=== PATIENT | female | born 1960 | race Caucasian/White ===

== ENCOUNTER 2017-06-07 14:39 | Inpatient (IN) | payer OTHER ==
[~2017-06-07] VITALS: Ht 162.6 cm; Wt 88.9 kg
--- OUTSIDE RECORDS SUMMARY | ~2017-06-07 | XMS | Clinical Summary ---
Demographics + + + | Address | [address] | | | [place] [address] | + + + | Home Phone | | + + + | Preferred Language | Unknown | + + + | Marital Status | Single | + + + | Samaritan Affiliation | None | + + + [...] Team Providers + +------+ + | Care Foam Gun Operator Name | Role | Phone | + [...] | + +--------+ +--------+ + + | [facility] | PROVID | [id number] | Indemn | [phone] | [address] | | PLAN | [place] | | [address] | [phone] | [place], [place] | | | [place] | | | | [phone] | | | [place] | | | [...] | | al/Fam | | 1959 | [phone] | [place] | | | eros | | | [address]: | [place] [address] | | | | | | | | | | | | | [phone] | | | | | | | [phone] | | + +--------+ +--------+ + + Advance Directives Patient has advance directives. For more information, please contact:[employer] [place] [address]"
[2017-06-07] MEDS ORDERED: NORCO 5-325 TA1 EACH PO (14:52)
[2017-06-07] MEDS ORDERED: CYCLOBENZAPRINE5 MG PO (14:52)
[2017-06-07] MEDS ORDERED: CYMBALTA30 MG PO (14:53)
[2017-06-07] MEDS ORDERED: NEURONTIN300 MG PO (14:53)
--- OUTSIDE RECORDS SUMMARY | 2017-06-07 15:35 | XMS | Clinical Summary ---
Demographics + + + | Address | [address] | | | [place] [address] | + + + | Home Phone | | + + + | Preferred Language | Unknown | + + + | Marital Status | Single | + + + | Confucianist Affiliation | None | + + + | Race | Other Race | + + + | Ethnic Group | or | + + + Author + + + | Author | [facility] | + + + | Organization | [facility] | + + + | Address | Unknown | + + + | Phone | Unavailable | + + + Support + + +---------+ + | Name | Relationship | Address | Phone | + + +---------+ + | MYRNA VILLANUEVA | [place] | Unknown | | + + +---------+ + Care Team Providers + +------+ + | Care Plater Apprentice Name | Role | Phone | + +------+ + | Cody Delacruz DO | PP | | + +------+ + Allergies + + + +--------+ + | Active Allergy | Reactions | Severity | Noted | Comments | | | | | Date | | + + + +--------+ + | Codeine | Rash | | | | + + + +--------+ + Current Medications Not on file Active Problems + + + | Problem | Noted Date | + + + | Morbid obesity (HCC) | 01/17/2007 | + + + | Unspecified essential hypertension | 01/17/2007 | + + + | Unspecified sleep apnea | 01/17/2007 | + + + | Unspecified constipation | 01/17/2007 | + + + | Arthropathy, unspecified, site unspecified | 01/17/2007 | + + + | Backache, unspecified | 01/17/2007 | + + + | Other disorders of lipoid metabolism | 01/17/2007 | + + + | Migraine, unspecified, without mention of intractable migraine | 01/17/2007 | | without mention of status migrainosus | | + + + | Depressive disorder, not elsewhere classified | 01/17/2007 | + + + | Other malaise and fatigue | 01/17/2007 | + + + | Signs and symptoms involving emotional state | 01/17/2007 | + + + | Calculus of kidney | 01/17/2007 | + + + Social History + +-------+ +--------+------+ | Tobacco Use | Types | Packs/Day | Years | Date | | | | | Used | | + +-------+ +--------+------+ | Never Assessed | | | | | + +-------+ +--------+------+ + + + | Sex Assigned at | Date Recorded | | | | + + + | Not on file | | + + + Plan of Treatment + + + + + | Health Maintenance | Due Date | Last Done | Comments | + + + + + | Hep C Ab Screening | | | | | | 9 | | | + + + + + | HIV Screening | | | | | | 4 | | | + + + + + | Tetanus | | | | | | 8 | | | + + + + + | Cervical Cancer | | | | | Screening | 0 | | | + + + + + | Breast Cancer | | | | | Screening | 9 | | | + + + + + | Diabetes Mellitus | | | | | Screening | 9 | | | + + + + + | Colon Cancer | | | | | Screening | 9 | | | + + + + + | IMM Influenza (#1) | | | | | | 7 | | | + + + + + Results Not on filefrom Last 3 Months Insurance + +--------+ +--------+ + + | Payer | Benefi | Subscriber | Type | Phone | Address | | | t Plan | ID | | | | | | / | | | | | | | Group | | | | | + +--------+ +--------+ + + | [facility] | PROVID | [id number] | Indemn | [phone] [address] | | PLAN | [place] | | ity | [phone] | [place], [place] | | | [place] | | | | [phone] | | | [place] | | | | | | | [place] | | | | | + +--------+ +--------+ + + + +--------+ +--------+ + + | Guarantor Name | Accoun | Relation to | Date | Phone | Billing Address | | | t Type | Patient | of | | | | | | | | | | + +--------+ +--------+ + + | SADAF DOYLE | Person | Self [birth year] | Work: | [address] | | | al/Fam | | 1959 | [phone] | [place] | | | eros | | | [phone]: | [place] [address] | | | | | | | | | | | | | [phone] | | | | | | | [phone] | | + +--------+ +--------+ + + Advance Directives Patient has advance directives. For more information, please contact:[employer] [place] [address]"
--- OUTSIDE RECORDS SUMMARY | 2017-06-07 15:35 | XMS | Clinical Summary ---
Demographics + + + | Address | [address] | | | [place] [address] | + + + | Home Phone | | + + + | Preferred Language | Unknown | + + + | Marital Status | Single | + + + | Jain Affiliation | None | + + + [...] Team Providers + +------+ + | Care Hvac Refrigeration Technician Name | Role | Phone | + [...] | + +--------+ +--------+ + + | [employer] | PROVID | [id number] | Indemn | [phone] | [address] | | PLAN | [place] | | it[address] | [phone] | [place], [place] | | | [place] | | | | [phone] | | | [place] | | | [...] | | al/Fam | | 1959 | [phone] | [place] | | | er[address] | | | [address]: | [place] [address] | | | | | | | | | | | | | [phone] | | | | | | | [phone] | | + +--------+ +--------+ + + Advance Directives Patient has advance directives. For more information, please contact:[phone] [place] [address]"
--- NOTE | 2017-06-07 19:05 | NUR ---
PATIENT TO FLOOR FROM ED VIA STRETCHER. PATIENT REPORTED RIGHT QUADRANT PAIN, CHARACTERIZED CRAMPING, SPAMS. ADMISSION ASSESSMENT DONE. ABD TENDER ON THE RIGHT QUADRANT TO PALPATION. BOWEL TONE ACTIVE ON THE LUQ AND HYPOACTIVE IN LLQ AND RUQ/RLQ. PATIENT REPORTED MILD NAUSEA WITH CRAMPING. ZOFRAN WAS ADMINISTERED. SKIN INTACT. PERIPHERAL PULSE PALPABLE. HEART TONE REGULAR BUT TACHY AT TIME. PATIENT IS ON 2L O2 AND SAT @ 95-97%. IV SITE PATENT AND FLUID AND ABX INFUSING. PATIENT ORIENTED TO ROOM. CALL LIGHT IN REACH. FAMILY AT BEDSIDE.
--- NOTE | 2017-06-07 19:10 | NUR ---
DR DUNBAR IN ROOM TO EVALUATE PATIENT. PLAN FOR SURGERY TONIGHT.
--- NOTE | 2017-06-07 19:30 | NUR ---
BEDSIDE REPORT RECEIVED FROM JULIANA RAMOS. PT AWAKE IN BED, ON 1L OXYGEN AT THIS TIME, SPO2 95%, HR 100. IV ZOSYN AND LR BOLUS INFUSING WNL. CNAS IN ROOM FOR PRE OP SUGICAL SCRUB. FLOOD CONTROL ENGINEER IN ROOM. PT TO GO TO SURGERY THIS EVENING.
--- NOTE | 2017-06-07 19:52 | NUR ---
PT LEFT FOR OR VIA STRETCHER WITH ONE SLEEVE WHEEL MAKER. PEPCID TO BE GIVEN BY SLEEVE WHEEL MAKER. NO REGLAN AVAILABLE IN [facility] AT THIS TIME, SLEEVE WHEEL MAKER AWARE
--- NOTE | 2017-06-07 21:56 | NUR ---
06/07/172155 Tali Casillas 2145 PT ARRIVED MAINTAINING OWN AIRWAY, ASLEEP OFF AND ON. DENIES PAIN AND NAUSEA.
--- NOTE | 2017-06-07 22:50 | NUR ---
PHONE CALL TO TELE PHARMACY TO UPDATE EMAR FOR ZOSYN ADMINISTRATION PER WARE SERVER, VERBAL ORDER FROM DR. DUNBAR AND NURSE NOTIFY FROM DR. DUNBAR TO ADMINISTER PRIOR TO 2300. RN JO TO BRING TO FLOOR.
--- NOTE | 2017-06-07 22:50 | NUR ---
PT ARRIVES BACK FROM SURGERY WITH PACU NURSE NELLY. PT AWAKE, DROWSY, RATES PAIN 3/10 AT THIS TIME. MEPILEX CLEAN DRY AND INTACT AT BOTH INCISION SITES. CALVIN DRAIN SANGUINOUS FLUID. OCASIO DRAINING. PT ON 2L OXYGEN BY NC SATURATING 97% AT THIS TIME. CALL LIGHT IN REACH, FAMILY IN ROOM.
--- NOTE | 2017-06-07 23:25 | NUR ---
IV ZOSYN NOW INFUSING WNL. PT GIVEN ICE CHIPS, WATER, DENIES NAUSEA. DAUGHTER AT BEDSIDE. CALL LIGHT IN REACH, LIGHTS DIMMED.
--- NOTE | 2017-06-08 00:20 | NUR ---
PRN DILAUDID IV ADMINISTERED FOR 7/10 PAIN IN ABD, PT STATES "SORE". CALVIN DRAIN EMPTIED 50 MLS SANGUINOUS FLUID. OCASIO DRAINING SIGNIFICANT URINE, QUANTITY SUFFICIENT. SPO2 97% ON 2L OXYGEN. SCDS ON. CALL LIGHT IN REACH. PTS DAUGHTER GIVEN ICE WATER REQUESTED. WILL CONTINUE TO MONITOR.
--- NOTE | 2017-06-08 00:38 | NUR ---
CHARGE NURSE ROUNDING NOTE:. DROWSY, MEDICATED EARLIER. IVF INFUSING, NO EMESIS, FAMILY IN ROOM
--- NOTE | 2017-06-08 01:15 | NUR ---
IN PT ROOM FOR THIRD SET POST OP VITALS. PT DROWSY, AWAKENS TO VOICE ON ENTERING ROOM. TEMPERATURE 98.8, BP 96/56, HR 89, SPO2 98% ON 2L OXYGEN. PT HAS CALL LIGHT IN REACH, DAUGHTER ASLEEP ON COUCH, NO REQUESTS AT THIS TIME.
--- NOTE | 2017-06-08 03:23 | NUR ---
IN PT ROOM, ASSESSMENT COMPLETE. PT ABLE TO DANGLE AT SIDE OF BED, BP 96/74 AT THIS TIME. PT RATES PAIN 8/10, "BURINING, SORE" AT INCISION SITE. CALVIN DRAIN EMPTIED 30 ML SANGUINOUS FLUID. PRN TORADOL ADMINISTERED AT THIS TIME. IVF AND ANTIBIOTIC INFUSING WNL, FLUSHES EASILY. LUNGS CLEAR THROUGHOUT ALL LOBES, PT IS ON 1 L OXYGEN SPO2 97%. PT ASSISTED TO REPOSITION, PILLOW USED BRACE W MOVEMENT. CALL LIGHT IN REACH, LIGHTS OFF IN ROOM.
--- NOTE | 2017-06-08 05:01 | NUR ---
PT SLEEPING AT THIS TIME, EYES CLOSED, BREATHING NON-LABORED, ON 1L OXYGEN, SPO2 96%.
--- NOTE | 2017-06-08 05:04 | NUR ---
PT HAS RECEIVED PRN TORADOL, PRN DILAUDID FOR ABD PAIN. PT ABLE TO DANGLE AT SIDE OF BED. INCISIONS CLEAN DRY AND INTACT WITH MEPILEX AND OP SITES, CALVIN DRAIN DRAINING SANGUINOUS FLUID. OCASIO DRAINING YELLOW URINE QUANTITY SUFFICIENT. PT HAS DENIED NAUSEA. TOLERATING CLEAR LIQUIDS WELL. FAMILY IN ROOM OVER NIGHT. IV ANTIBIOTICS INFUSING WNL. PT ON 1L OXYGEN SATURATING WELL. VITALS STABLE.
--- NOTE | 2017-06-08 05:33 | NUR ---
LAB IN ROOM AT THIS TIME DRAWING LABS. PT BACK TO SLEEP, BREATHING NON-LABORED, IVF INFUSING WNL.
--- NOTE | 2017-06-08 05:54 | NUR ---
IN PT ROOM TO EMPTY OCASIO, CALVIN DRAIN EMPTIED 20 ML FLUID. YOLY OLIVO IN ROOM COMPLETING VITALS AT THIS TIME. PT C/O PAIN 10/02 IN ABD. BACK IN ROOM TO ADMINISTER PAIN MEDICATIONS, PT SLEEPING, BREATHING NON-LABORED, APPEARS COMFORTABLE. PAIN MEDICATIONS HELD AT THIS TIME.
--- NOTE | 2017-06-08 07:01 | NUR ---
PT AWAKE, ALERT, VISITING WITH DAUGHTER. PT RATES PAIN 8/10. 4 MG IV MORPHINE PRN ADMINISTERED. PT ASSISTED TO REPOSITION FOR COMFORT. IV ANTIBIOTIC INFUSING AT THIS TIME. CALL LIGHT IN REACH. DAUGHTER AT BEDSIDE.
--- NOTE | 2017-06-08 07:53 | NUR ---
REPORT RECEIVED AT BEDSIDE FROM СВЕТЛАНА. ASSUMING PATIENT CARE AT THIS TIME. PATIENT RESTING IN BED AWAKE IN BED ALERT AND ORIENTED. PATIENT REPORTS ABD PAIN. СВЕТЛАНА MEDICATED PATIENT FOR PAIN. CALL LIGHT IN REACH. FAMILY AT BEDSIDE.
--- NOTE | 2017-06-08 08:29 | NUR ---
PATIENT RELAXING IN BED. FAMILY IN ROOM. CLEAR DIET, NOT HUNGRY. PATIENT IN PAIN, BETTER NOW THAT SHE RECEIVED MEDS. CALL LIGHT IN REACH.
--- NOTE | 2017-06-08 08:35 | NUR ---
PT CALLED STATING HER IV PUMP WAS BEEPING AND THAT SHE WANTS SOMETHING FOR PAIN. RN IS AWARE OF PT'S REQUEST. CALL LIGHT IS IN REACH.
--- NOTE | 2017-06-08 09:15 | NUR ---
PT IN BED, PAIN IS 8/10. VITALS DONE, B/P SLIGHTLY ELEVATED-NURSE NOTIFIED. OCASIO EMPTIED. STUDENT NURSE AND INSTRUCTOR IN ROOM. PT SAYS SHE DOESNT MIND THE PAIN BUT THE SPASMING IS WHAT HURTS. CALL LIGHT IN REACH.
--- NOTE | 2017-06-08 09:35 | NUR ---
IN TO ROOM TO ASSESS PATIENT. MEDICATED PATIENT FOR PAIN. ABD SOFT AND BOWEL TONE HYPOACTIVE. ABD INCISION COVERED WITH MEPILEX. CALVIN DRAIN IN PLACE AND DRAIN SEROUS FLUID. OCASIO IN PLACE AND DRAINING WELL. PATIENT DENIES NAUSEA. REPORT SPAMS WITH THE PAIN. PATIENT IS VERY EMOTIONAL. FAMILY AT BEDSIDE. IV SITE PATENT, FLUID AND ABX INFUSING WELL. PATIENT STILL ON 1L OF O2. O2 SAT WNL. PATIENT EDUCATED ABOUT PAIN AND THE NEED TO AMBULATE. WILL CONTINUE TO MONITOR PATIENT.
--- NOTE | 2017-06-08 10:20 | NUR ---
PATIENT CALLED, SAYS PAIN IS HIGHER NOW, JULIANA RAMOS NOTIFIED. PATIENT AGREED TO WALK AFTER RECIEVING SOMETHING FOR PAIN. CALL LIGHT IN REACH.
--- NOTE | 2017-06-08 10:57 | NUR ---
ASSISTED PATIENT UP TO BEDSIDE, THEN WALKED HER FROM ROOM TO THE HALLWAY AND BACK TO BED. TOLERATED WELL, BUT IN A LOT OF PAIN. PATIENT WAS MEDICATED PRIOR TO GETTING UP.
--- NOTE | 2017-06-08 11:28 | NUR ---
PATIENT ASKED FOR MORE PAIN MEDS FOR THE SPASMING. THIS EMERGENCY CARE ATTENDANT BROUGHT HER SOME JELLO TO TRY. BOYFRIEND AND DAUGHTER LEFT. GRANDSON HERE. RN RONALDOENE IN ROOM. CALL LIGHT IN REACH.
[2017-06-08] MEDS ORDERED: GABAPENTIN100 MG PO (12:08)
[2017-06-08] MEDS ORDERED: ZOLPIDEM TARTRAT5 MG PO (12:10)
[2017-06-08] MEDS ORDERED: HYDROCODON-ACE1 EAC8 PO (12:11)
[2017-06-08] MEDS ORDERED: FLUTICASONE PRO16 GM NAS (12:13)
[2017-06-08] MEDS ORDERED: ALPRAZOLAM0.5 MG PO (12:14)
[2017-06-08] MEDS ORDERED: SENNA-DOCUSATE1 EAC1 PO (12:15)
[2017-06-08] MEDS ORDERED: DULOXETINE HCL60 MG PO (12:15)
--- NOTE | 2017-06-08 12:16 | NUR ---
MED REC COMPLETE WITH PATIENT INTERVIEW AND REFILL HISTORY
--- NOTE | 2017-06-08 12:36 | NUR ---
DR DUNBAR CALLED AND GAVE ORDER TO CHARGE NURSE KATARINA FOR MORPHINE SKEIN SPOOLER. PATIENT WAS INFORMED AND EDUCATED ABOUT HOW TO USE TO SKEIN SPOOLER. MORPHINE SKEIN SPOOLER STARTED. PATIENT REPORT 6/10 ABD PAIN. NO APPARENT DISTRESS NOTED RESTING IN BED AT THIS TIME. WILL CONTINUE TO MONITOR.
--- NOTE | 2017-06-08 14:06 | NUR ---
ASSISTED PATIENT TO WALKED IN THE HALLWAY THE 2ND TIME. TOLERATED WELL. TECHNICAL SERVICES MANAGER IN USE. PATIENT BACK TO BED AT THIS TIME, DENIES NAUSEA. REPORT SPAMS WITH PAIN.
--- NOTE | 2017-06-08 14:28 | NUR ---
PT IN TEARS I ENTERED. SHE ADMITTED THAT SHE WAS IN TREMENDOUS PAIN. SHE PUT IT AT "10". SHE HAS SENIOR QUALITY ANALYST, BUT I DON'T FEEL SHE IS REALLY USING IT TO IT'S POTENTIAL. HER MYRNA AND SON ESTELA ARE PRESENT. PT HAD OPEN APPY, AND MENTIONED THAT HER APPY HAD "BURST". PT ALLOWED ME TO HAVE PRAYER FOR HER, AND I ALERTED HER RN AUR[facility]A ABOUT HER CONDITION. SHE GAVE ME INSTRUCTION TO HOW SENIOR QUALITY ANALYST IS TO WORK, AND I WENT BACK AND RELAYED THIS INFO. SHE HAD NOT BEEN PUSHING IT SHE SHOULD HAVE, PARTLY BECAUSE I THINK BOTH FELT SHE COULD O.D. SIGH OF RELIEF AND INFO SEEMED TO HELP. RN AURORA CAME IN AND AN ICE BAG WAS APPLIED TO INCISION. WILL CONTINUE TO FOLLOW NEEDED
--- NOTE | 2017-06-08 14:58 | NUR ---
MOTOR SCOOTER REPAIRER SYRINGE REPLACED. PT RATIGN PAIN 10/02 AT THIS TIME. PT RPOVIDED WITH FRESH WATER. PT DENIES OTHER NEEDS AT THIS TIME.
--- NOTE | 2017-06-08 15:14 | NUR ---
PATIENT RELAXING IN BED. PATIENT SEEMS TO BE IN LESS PAIN NOW. TEMP OF 100.9. NOTIFIED. PATIENT ASKED TO HAVE HER HAIR WASHED AND BRAIDED IF POSSIBLE. CALL LIGHT IN REACH.
--- NOTE | 2017-06-08 15:41 | HP ---
[facility] [address] [place], [place] [address] Signed ADMISSION DATE: 06/07/2017 REASON FOR ADMISSION: Possible perforated appendicitis. HISTORY: This 57-year-old obese woman has had 3 days of increasing abdominal pain including right-sided flank pain. She was under the misapprehension, she had a recurrent renal stone. She has had kidney stones in the past. Her pain worsened and was essentially intolerable, and she presented to the emergency room. She was evaluated by Dr. Marcial, who noted her to be markedly tender. A CT scan of the abdomen was performed, which showed no evidence of nephrolithiasis, but did show findings highly consistent with appendicitis. She is admitted for further evaluation and care. PAST MEDICAL HISTORY: Significant for a lap band procedure in the past. Notably, the band, as its port located on the right side of the abdomen. She has not had problems with that in the past. She has episodic chronic neck pain as well. MEDICATIONS: At admission include: 1. Cyclobenzaprine (Flexeril) 5 mg p.o. as needed for neck pain. 2. Cymbalta 30 mg p.o. daily for neck pain. 3. Neurontin (gabapentin) 300 mg p.o. b.i.d. 4. [place] 5/325 one tablet as needed for neck pain. 5. Meloxicam (Mobic) 15 mg p.o. daily as needed for pain. ALLERGIES: She has allergies to codeine. SOCIAL HISTORY: She is accompanied by her . Her is known to me as a the patient as well for colonoscopy. She lives in [place]. She works at the [employer]. Her life partner is Wang Heredia, who accompanies her at this time. Her primary care provider is Dr. Snyder. REVIEW OF SYSTEMS: She does feel somewhat thirsty. She has no chest pain or substernal pain. Pain is in the lower abdomen, mostly in the right lower side. She has had some nausea, but no vomiting. She denies any blood per rectum or hematemesis. Electronically Signed By: EDOUARD DUNBAR MD 06/08/17 1541 PATIENT NAME: SADAF CHATMAN HISTORY AND PHYSICAL DATE OF : 58 REPORT #: [id number] PHYSICIAN: EDOUARD DUNBAR MD PCP: CODY SNYDER DO REPORT IS CONFIDENTIAL AND NOT TO BE RELEASED WITHOUT AUTHORIZATION [facility] [address] [place], [place] [address] Signed PHYSICAL EXAMINATION: GENERAL: Somewhat obese white appearing woman, who looks to be in moderate discomfort. Mucous membranes are dry. Trachea is midline. CHEST: Clear without wheeze or rhonchi. HEART: Regular without murmur. ABDOMEN: Quite obese. Rovsing sign is positive. There is marked tenderness at McBurney point. She has a right abdominal transverse incision considered related to her lap band device. EXTREMITIES: No clubbing, cyanosis, or edema. A fair amount of obesity is noted, however. LABORATORY DATA: Show white count of 7.8, hematocrit 40.7, platelets 389,000. Electrolytes abnormal only for a potassium of 3.2 and a glucose of 132. Liver enzymes are normal. Urinalysis shows 30 mg/dL of protein, red cells five per high-power field, white cells zero. Abdomen and pelvic CT were reviewed and the report also reviewed confirming acute appendicitis and a small amount of extraluminal gas. ASSESSMENT: The patient has clinical and radiographic evidence of acute appendicitis. Antibiotics were initiated in the emergency room including Zosyn and fluids have been initiated as well. She needs an additional bolus of fluid and given her extent of tenderness and so forth, I believe expedient appendectomy would be appropriate. She may be able to have a laparoscopic approach, but may indeed require an open procedure, particularly given the extent of inflammation, and high probability of perforation. If that is the case, the drain may be left in place. The risks of bleeding, infection, failure of diagnosis, missed diagnosis, and so forth were all reviewed in detail and she understands. MD MARANDA Garzon/MODL /[id number] cc: Cody Snyder DO Dr. Njo Electronically Signed By: EDOUARD DUNBAR MD 06/08/17 1541 PATIENT NAME: SADAF CHATMAN HISTORY AND PHYSICAL DATE OF : 58 REPORT #: [id number] PHYSICIAN: EDOUARD DUNBAR MD PCP: CODY SNYDER DO REPORT IS CONFIDENTIAL AND NOT TO BE RELEASED WITHOUT AUTHORIZATION [address] [address] Signed Copies: CODY SNYDER DO ~ Electronically Signed By: EDOUARD DUNBAR MD 06/08/17 1541 PATIENT NAME: SADAF CHATMAN Isrrael HISTORY AND PHYSICAL DATE OF : 58 REPORT #: [id number] PHYSICIAN: EDOUADR DUNBAR MD PCP: CODY SNYDER DO REPORT IS CONFIDENTIAL AND NOT TO BE RELEASED WITHOUT AUTHORIZATION
--- NOTE | 2017-06-08 15:41 | OR ---
[facility] [address], [place] [address] Signed DATE OF OPERATION: 06/07/2017 SURGEON: Edouard Dunbar MD PREOPERATIVE DIAGNOSES: 1. Acute peritonitis with probable perforated appendicitis. 2. History of laparoscopic band procedure. POSTOPERATIVE DIAGNOSES: 1. Generalized peritonitis with pelvic abscess. 2. Perforated appendicitis. PROCEDURE: 1. Laparoscopy with peritoneal lavage and drainage and culture. 2. Open drainage of pelvic abscess. 3. Open appendectomy (prolonged complicated difficult). ANESTHESIA: General endotracheal. Wang Gray CRNA. INDICATION: This 57-year-old woman, who presented to the emergency room earlier today and was evaluated by Dr. Marcial. She has had four days of pain, which became generalized and more dominant in the right lower abdomen. Her pain initially was in the right flank. She has history of nephrolithiasis and thought she was simply passing another kidney stone. Her evaluation in the emergency room showed to have generalized peritonitis. Her white count was normal, however. A CT scan was performed, which showed a markedly inflamed right lower abdomen and probable appendicitis, and in my opinion perforated appendicitis. She had extraluminal gas noted. A lap band device was in place and the port on the right side of the abdomen with the course of the catheter itself was somewhat circuitous extending inferiorly and then superiorly to the left side. She was admitted at this time to undergo a laparoscopy, possible laparoscopic appendectomy, and other indicated procedures including drainage and possible open procedure. She understands as does her the risks of bleeding, infection, need for open procedure, delayed wound infection, other problems, and wished to proceed. FINDINGS: Generalized peritonitis was noted on laparoscopy. There was purulent material along the right pericolic gutter and over the dome of the liver. Peritoneal lavage was undertaken very thoroughly to clean up the peritoneal cavity. In the right lower quadrant, there Electronically Signed By: EDOUARD DUNBAR MD 06/08/17 1541 PATIENT NAME: SADAF CHATMAN OPERATIVE REPORT DATE OF : 58 REPORT #: [id number] PHYSICIAN: EDOUARD DUNBAR MD PCP: FREDY SNYDER DO REPORT IS CONFIDENTIAL AND NOT TO BE RELEASED WITHOUT AUTHORIZATION [facility] [address] [place], [place] [address] Signed was a dense cicatrix, the omentum densely adherent to the process. A laparoscopic interrogation could not ever identify really the appendix and ultimately it was found that she had a pelvic abscess as well as retrocecal abscess. Conversion to open operation allowed for mobilization of the cecum and omentum in the region showing perforation of the appendix, just beyond the origin of the appendix, and a dense large fecalith. Gross contamination of fecal material was noted in the area. Appendectomy was performed in addition to drainage of pelvic abscess and placement of drain. DESCRIPTION OF PROCEDURE: The patient was brought to the operating room, given a general endotracheal anesthetic. A Rodríguez catheter was placed. Preoperative antibiotic Zosyn had been given in the past hour through the emergency room. The abdomen was prepared with chlorhexidine solution and draped sterilely. Note was made preoperatively of the course of the lap band catheter as well as the port device for it. An infraumbilical incision was made and using an open Aleisha cannula technique, the abdomen was entered without problem and pneumoperitoneum achieved to a level of 14 mmHg of carbon dioxide gas. Intraabdominal inspection showed generalized peritonitis, fibrinopurulent exudate, particularly along the right pericolic gutter and extending over the dome of the liver. A 12 mm epigastric port was placed and trying to avoid any proximity to the catheter from the lap band. This was accomplished without injury to the lap band device. Camera was replaced to that site. Single hand manipulation of the right lower abdomen showed a dense inflammatory process in the region of the cecum. Some purulent material was retrieved in a Luki tube for Gram stain and cultures. Manipulation of the cecum was difficult as it was very firm and like vulcanized rubber. A 5 mm suprapubic port was then placed into and manipulation undertaken. With various manipulations, the cecum could be identified as was the ileum, but a dense process with omental adhesions is noted in the area. With various manipulations, ultimately the pelvis could be identified showing purulent fluid collection consistent with abscess. This fluid was suctioned. Various attempts mobilizing the cecum and the appendix were unsuccessful. The camera was removed and digital examination undertaken, and showing a dense firm rubbery mass that was densely adherent to the retroperitoneum. On that basis, conversion to open operation was deemed most advisable. The trocars were removed showing no sign of bleeding in the epigastric port site. Infraumbilical incision was extended inferiorly to the symphysis pubis. Based on her obesity, much better approach than a classic McBurney's incision. The abdomen was entered without problem and examination showed there to be a pelvic abscess. Gram stain and cultures were obtained of that tissue separately. Isolating laparotomy packs were used to isolate the cecum, which was densely adherent and with blunt dissection it was freed from its retroperitoneal attachments. The ileum appeared normal. A very dense and rubbery cecum was noted in conjunction with a markedly dilated and thickened appendix, and a perforation at the base of the appendix. Egress of the fecalith noted Electronically Signed By: EDOUARD DUNBAR MD 06/08/17 1541 PATIENT NAME: SADAF CHATMAN OPERATIVE REPORT DATE OF : 58 REPORT #: [id number] PHYSICIAN: EDOUARD DUNBAR MD PCP: FREDY SNYDER DO REPORT IS CONFIDENTIAL AND NOT TO BE RELEASED WITHOUT AUTHORIZATION [facility] [address] [place], [place] [address] scan was noted. This was retrieved and not lost. With blunt dissection using the suction device as well as careful manipulation by hand, the appendix could be more fully mobilized. It was definitely necrotic and perforated, no doubt the cause of the abscess. Ultimately, a window was created between the appendix and the cecum. An Endo SUZANNE stapling device was used to transect the base of the appendix and flushed with the cecum. This allowed for a better exposure of the mesoappendix, which was then divided with Endo-SUZANNE stapling device as well. Good hemostasis was noted. Close inspection of the appendiceal stump showed it to be secure. However, the markedly inflamed cecum itself made me consider possibly a tenuous closure. Provocation of the cecum with manipulation showed no sign of leakage or disruption of the staple line. A small amount of omentum was later tacked to this area to allow for augmentation of healing. Copious irrigation was undertaken in the right lower abdomen and the pelvis. I was pleased that generalized peritoneal lavage was done previously with the laparoscope. A 7 mm flat Kaleb drain was passed through a right-sided abdominal incision, manipulated to incorporate the area of the cecal area and the tip of the catheter placed in the deep pelvis where the abscess was. The peritoneal fluid by this point was completely clear. Plans were made for closure. The midline fascia was reapproximated with running #1 PDS suture. Subcutaneous tissue irrigated and skin closed with several interrupted 3-0 Vicryl to allow for egress of noxious humor as needed. The epigastric incision was reapproximated with interrupted 3-0 Vicryl, Steri-Strips were applied loosely. A Mepilex silver sponge dressing was applied to the midline laparotomy incision. The drain had been secured to the skin with nylon suture and attached to bulb suction. The patient was ultimately extubated, transferred to recovery room in good condition having suffered no complications. Sponge, needle, and counts reported as correct x3. The operation was prolonged, complicated, and difficult on the basis of laparoscopy, need for open procedure and her obesity, and took four times longer than usual. MD MARANDA Garzon/MODL /[id number] Electronically Signed By: EDOUARD DUNBAR MD 06/08/17 1541 PATIENT NAME: SADAF CHATMAN OPERATIVE REPORT DATE OF : 58 REPORT #: [id number] PHYSICIAN: EDOUARD DUNBAR MD PCP: FREDY SNYDER DO REPORT IS CONFIDENTIAL AND NOT TO BE RELEASED WITHOUT AUTHORIZATION [facility] [address] [place] [id number] Signed cc: DO Dr. Royer Rioso Copies: FREDY SNYDER DO ~ Electronically Signed By: EDOUARD DUNBAR MD 06/08/17 1541 PATIENT NAME: SADAF CHATMAN OPERATIVE REPORT DATE OF : 58 REPORT #: [id number] PHYSICIAN: EDOUARD DUNBAR MD PCP: FREDY SNYDER DO REPORT IS CONFIDENTIAL AND NOT TO BE RELEASED WITHOUT AUTHORIZATION
--- NOTE | 2017-06-08 15:46 | NUR ---
DR DUNBAR WAS IN ROOM TO REEVALUATE PATIENT.
--- NOTE | 2017-06-08 16:00 | NUR ---
PT HAS ACRYLIC NAILS- PULSE OX ISNT READING CORRECTLY. THIS OPERATOR AND OPERATOR SHAY TRIED TROUBLESHOOTING-PT NOW HAS PEDS PULS OX ON LEFT EAR. CALL LIGHT IN REACH.
--- NOTE | 2017-06-08 17:00 | NUR ---
PATIENT IN BED, BOYFRIEND IN ROOM. THIS PARKING METER ATTENDANT USED WATERLESS SHOWERCAP ON PTS HAIR AND COMBED/BRAIDED. BOYFRIEND HAS BEEN HEARD MORE THAN ONCE ENCOURAGING PT TO PRESS HER MORPHINE BUTTON-(EVERY 6-10 MIN) ASKED IF THERE WAS A WAY FOR A PERSON TO PUSH IT SOONER THAN 6 MIN. PATIENT HAS BEEN SIPPING ON APPLE JUICE AND EATING ICE CHIPS. DRAIN AND OCASIO EMPTIED. VITALS DONE. CALL LIGHT IN REACH
--- NOTE | 2017-06-08 17:07 | NUR ---
PATIENT RESTING IN BED, REPORT RELIEF OF PAIN AND SPASM. FIBER OPTIC CENTRAL OFFICE INSTALLER IN USE. FAMILY AT BEDSIDE.
--- NOTE | 2017-06-08 18:18 | NUR ---
PATIENT WATCHING TV IN BED. VITALS AND I/OS DONE. CALL LIGHT IN REACH. NO OTHER NEEDS.
--- NOTE | 2017-06-08 18:25 | NUR ---
PATIENT HAD AN UNEVENTFUL DAY. WAS IN A LOT OF PAIN AT THE BEGINING OF THE SHIFT. PATIENT HAS A MORPHINE PRESS OPERATOR AUTOMATIC AT THIS TIME. OCASIO WILL BE DC PER MD ORDER. ABD INCISION COVERED WITH MEPILEX, CALVIN DRAIN IN PLACE. PATIENT REPORTED SPASM WITH PAIN. PATIENT AMBULATED IN THE HALLWAY TWICE TODAY. TOLERATED WELL. HYPOACTIVE BOWEL TONE. PATIENT IS SOMETIME ANXIOUS AND EMOTIONAL AT TIME. TOLERATED CLEAR LIQUID WELL. NO NAUSEA FOR THIS SHIFT.
--- NOTE | 2017-06-08 18:43 | NUR ---
OCASIO D/C . PATIENT EDUCATED ABOUT VOIDING. PAIN CONTROLED WITH BALANCE BRIDGE ASSEMBLER. FAMILY AT BEDSIDE.
--- NOTE | 2017-06-08 19:05 | NUR ---
BEDSIDE REPORT RECEIVED FROM JULIANA RAMOS. PT LYING IN BED, BACK FROM RESTROOM AFTER ATTEMPT TO VOID, UNABLE TO AT THIS TIME. PT ON 1L OXYGEN BY NC, SPO2 97%. SCDS ON. SMALL AMOUNT OF SHADOWING SIZE OF DIME ON LOWER MEPILEX DRESSING. CALVIN DRAIN SEROSANGUINOUS FLUID. PT HAS GRAIN BUYER PUMP BUTTON, CALL LIGHT. NO REQUESTS AT THIS TIME. FAMILY IN ROOM.
--- NOTE | 2017-06-08 20:06 | NUR ---
CALL LIGHT ANSWERED, IV PUMP BEEPING, ANTIBIOTIC INFUSION COMPLETE. IV FLUSHED WNL. FLUIDS INFUSING WNL AT 60 ML/HR. PT FAMILY IN ROOM. CALL LIGHT IN REACH.
--- NOTE | 2017-06-08 22:00 | NUR ---
PT ASSISTED TO RESTROOM FOR 500 ML VOID. PT RATES PAIN 6/10 IN ABDOMEN, STATES MUCH BETTER FROM THIS MORNING, PT USING GLOBAL VP CREATIVE + CONTENT MARKETING PUMP. ABDOMEN SOFT, TENDER, BOWEL TONES HYPOACTIVE X 4. SMALL SHADOWING ON LOWER MEPILEX DIME SIZE. CALVIN DRAIN DRAINING SMALL AMT SEROSANGUINOUS FLUID. LUNGS CLEAR THROUGHOUT ALL LOBES. IV SITES WNL, FLUSH EASILY. PT DENIES NAUSEA. GIVEN ICE WATER. BOYFRIEND IN ROOM, SCDS ON. ASSISTED TO REPOSITION TO SIDE. CALL LIGHT AND GLOBAL VP CREATIVE + CONTENT MARKETING PUMP IN REACH.
--- NOTE | 2017-06-08 23:05 | NUR ---
ZOSYN INFUSING AT THIS TIME WNL RIGHT HAND. PT ASSISTED TO RESTROOM FOR VOID, SBA. BACK IN BED, ON ROOM AIR AT THIS TIME SPO2 94%, CONT. PULSE OX ON. PT HAS INSPECTOR FILTER TIP PUMP, CALL LIGHT IN REACH, SCDS ON, GIVEN FRESH ICE WATER. NO ADDITIONAL REQUESTS. LIGHTS OFF IN ROOM.
--- NOTE | 2017-06-09 00:56 | NUR ---
CHECKED ON PT, PT APPEARS TO BE SLEEPING, EYES CLOSED, SPO2 93% ON 1L OXYGEN BY NC, BREATHING NON-LABORED. LIGHTS OFF IN ROOM, SCDS ON, ANTIBIOTICS INFUSING.
--- NOTE | 2017-06-09 01:37 | NUR ---
IN PT ROOM, CONT. PULSE OX BEEPING. PT STANDING IN ROOM, UP TO VOID WITHOUT CALLING FOR ASSISTANCE. PT INSTRUCTED TO USE CALL LIGHT, VERBALIZES UNDERSTANDING. PT IS ALERT, ORIENTED X 3. NEW VBA DEVELOPER VIAL PLACED IN PUMP. IV TORADOL ADMINISTERED AT THIS TIME, PT STATES PAIN IS 7/10 IN ABDOMEN. PT DESCRIBES PAIN "SORE". DRESSING INTACT WITH MEPILEX UPPER AND LOWER ABD, TWO SMALL SPOTS SHADOWING ON MEPILEX ON LOWER ABD SITE. CALVIN DRAIN DRAINING SMALL AMT SEROSANGUINOUS FLUID. PTS LUNGS CLEAR THROUGHOUT ALL LOBES. PT ON 1L OXYGEN, SPO2 94%. WILL CONTINUE TO MONITOR. CALL LIGHT, VBA DEVELOPER PUMP, PERSONAL SUPPLIES IN REACH.
--- NOTE | 2017-06-09 03:44 | NUR ---
PT SLEEPING, BREATHING NON-LABORED, SPO2 92% ON 1L OXYGEN. IVF INFUSING, SCDS ON.
--- NOTE | 2017-06-09 04:02 | NUR ---
CALL LIGHT ANSWERED, SBA TO RESTROOM FOR VOID. IVF INFUSING WNL. PT GIVEN ICE WATER. BACK TO BED, SCDS ON, 1L OXYGEN BY NC ON, CONT. PULSE OX. PT HAS PERSONAL SUPPLIES, CALL LIGHT AND ICT TRAINER PUMP BUTTON IN REACH. LIGHTS OFF IN ROOM.
--- NOTE | 2017-06-09 05:15 | NUR ---
PT AMBULATING TO RESTROOM FOR VOIDS THROUGHOUT SHIFT. PAIN WELL MANAGED WITH SEAM STAY STITCHER PUMP, PRN TORADOL. BOWEL TONES HYPOACTIVE, DRESSINGS CLEAN AND INTACT, SCANT SHADOWING NOTED ON LOWER MEPILEX. CALVIN DRAIN DRAINING. PT HAS DENIED NAUSEA THROUGHOUT SHIFT, TOLERATING CLEAR LIQUID DIET WELL. ON 1L OXYGEN, CONT. PULSE OX. CONTINUES TO RECEIVE IVF WNL.
--- NOTE | 2017-06-09 06:49 | NUR ---
IV ZOSYN INFUSING AT THIS TIME. PT UP TO RESTROOM FOR VOID, AWAKE IN BED WATCHING TV. SCDS ON. SPO2 92% ON 1L OXYGEN BY NC. CALVIN DRAIN EMPTIED 20 ML THIS SHIFT AT THIS TIME, SEROSANGUINOUS FLUID. PT GIVE ICE WATER REQUESTED. IS AND OS COMPLETED. CALL LIGHT IN REACH.
--- NOTE | 2017-06-09 07:47 | NUR ---
PATIENT CALLED FOR FRESH ICE WATER A ICE PACK. EMPTIED GARBAGE. CALL LIGHT IN REACH
--- NOTE | 2017-06-09 07:49 | NUR ---
SHIFT CHANGE REPORT RECEIVED AT BEDSIDE. PATIENT AWAKE IN BED. REPORT MINIMAL PAIN. MANAGER WOMEN IN USE. IV FLUID AND ABX INFUSING WELL. PATIENT SEEM TO BE IN A BETTER MOOD TODAY. DENIES NAUSEA. CALL LIGHT IN REACH.
--- NOTE | 2017-06-09 08:45 | NUR ---
IN TO ROOM TO ASSESS PATIENT. PATIENT REPORTED MILD NAUSEA AFTER DRINKING SOME CHICKEN BROTH. PATIENT WAS MEDICATED WITH ZOFRAN. PATIENT REQUESTED TO GO FOR A WALK. PATIENT ASSISTED WITH AMBULATION IN THE HALLWAY WITH NO DIFFICULTY. PATIENT ASSISTED BACK TO ROOM, TO BATHROOM THEN TO THE CHAIR. REPORTED RELIEF OF NAUSEA AFTER WALKING. SHIFT ASSESSMENT DONE. ABD INCISION COVERED WITH MEPILEX WITH SCANT SHADOWING FROM YESTERDAY. CALVIN DRAIN IN PLACE WITH SCANT SEROUS FLUID. PATIENT REPORTED ABD TENDER WITH PALPATION. BOWEL TONE STILL HYPOACTIVE. PATIENT ALSO REPORTED PASSING FLATUS. LUNGS ARE CLEAR. NO PERIPHERAL EDEMA. IV SITE PATENT WITH ABX INFUSING. PATIENT REQUESTED TO GO BACK TO BED AFTER IN THE CHAIR FOR 15MINUTES RESTING IN BED AT THIS TIME, CALL LIGHT AND PERSONAL BELONGING IN REACH. WILL CONTINUE TO MONITOR.
--- NOTE | 2017-06-09 09:49 | NUR ---
PATIENT SITTING UP IN BED, BOYFRIEND IN ROOM. VITALS AND I/OS DONE. CALL LIGHT IN REACH. DR DUNBAR IN TO TALK WITH PATIENT. ENCOURAGED WALKING, AND CHANGING DIET TOLERATED. POSS D/C TOMORROW OR SUNDAY
--- NOTE | 2017-06-09 10:00 | NUR ---
DR DUNBAR WAS IN ROOM TO EVALUATE PATIENT. PLAN TO ADVANCE DIET TOLERATED. TRANSITION FROM ASBESTOS SIDING INSTALLER TO ORAL PAIN MED. OK TO SHOWER. NO APPARENT DISTRESS.
--- NOTE | 2017-06-09 11:55 | NUR ---
PATIENT WANTS TO WAIT FOR AWHILE TO SHOWER. AGREES TO DO IT BEFORE NAPPING AGAIN. CALLL IGHT IN REACH. FAMILY IN ROOM.
--- NOTE | 2017-06-09 11:59 | NUR ---
ASSISTED PATIENT TO AMBULATE IN THE HALLWAY.THEN BACK TO BED. TOLERATED WELL. PATIENT DENIES NAUSEA. ABLE TO TAKE PO PAIN PILL. PATIENT EDUCATED ABOUT USING LESS OF THE CLASSROOM PARAPROFESSIONAL. PATIENT VERBALIZED UNDERSTANDING. REPORTED PAIN AT 6/10. RESITNG IN BED AT THIS TIME PLAYING IN HER TABLET. CALL LIGHT AND PERSONAL BELONGING IN REACH.
--- NOTE | 2017-06-09 14:36 | NUR ---
PATIENT WATCHING TV IN BED, FAMILY IN ROOM. VITALS AND I/OS DONE. CALL LIGHT IN REACH.
--- NOTE | 2017-06-09 15:15 | NUR ---
PATIENT RESTING IN BED. PLAYING ON HER TABLET. REPORT 4/10 ABD PAIN. STATED THAT HER PAIN IS TOLERABLE. TORADOL WAS ADMINISTERED ABOUT 2HRS AGO. PATIENT TOLERATE ADVANCED DIET, WAS ABLE TO EAT SOME SOUP. USED LESS OF DIRECTOR HAIR. PATIENT DENIES NAUSEA. NO DISTRESS NOTED. CALL LIGHT IN REACH. FAMILY AT BEDSIDE.
--- NOTE | 2017-06-09 15:26 | NUR ---
PATIENT UP WALKING IN THE [address] WAY WITH HER DAUGHTER. TOLERATED WELL.
--- NOTE | 2017-06-09 15:42 | NUR ---
PATIENT UP WALKING WITH DAUGHTER. ASKED FOR PAIN MED WHEN BACK TO ROOM. WANTS TO SHOWER BEFORE BED. THIS GOLF COURSE RANGER REMINEED PT TO USE "IS" PT THANKED THIS GOLF COURSE RANGER FOR ALL WE ARE DOING FOR HER. JULIANA BRAY WITH MEDS. CALL LIGHT IN REACH.
--- NOTE | 2017-06-09 15:43 | NUR ---
patient is back to bed after ambulating in the hallway, pain in her abdomen at this time is at a 5/10, patient given a percocet 7.5/325 po at this time.
--- NOTE | 2017-06-09 16:46 | NUR ---
STANDBY ASSIST PT TO BATHROOM FOR SHOWER. RN RACHEL COVERED PTS DRESSING ON STOMACH PER DR DUNBAR. FAMILY IN ROOM. FAMILY SEEMS VERY PLEASED WITH CARE PATIENT IS RECIEVING. NO OHTER NEEDS AT THIS TIME.
--- NOTE | 2017-06-09 17:00 | NUR ---
REPORT RECIEVED FROM JULIANA RAMOS. RN CHANGING DRESSING.
--- NOTE | 2017-06-09 17:42 | NUR ---
ADMINISTERED SCHED MEDS. PT UP WALKING IN [address] WITH DAUGHTER. TOLERATING WELL. SITE DRY AND WELL APPROX.
--- NOTE | 2017-06-09 18:13 | NUR ---
PT LYING IN BED, DAUGHTER IN ROOM. VITALS,I/OS DONE. CALVIN EMPTIED. DAUGHTER LEAVING FOR THE NIGHT. CALL LIGHT IN REACH. NO OTHER NEEDS
--- NOTE | 2017-06-09 19:00 | NUR ---
RECEUVED REPORT, PT IS RESTING IN BED WITH EYES CLOSED, RESPIRATIONS ARE EVEN AND NONLABORED. CALL LIGHT IS WITHIN REACH.
--- NOTE | 2017-06-09 21:05 | NUR ---
PT IS RESTING WITH EYES CLOSED AND RESPIRATIONS EVEN AND NONLABORED. CALL LIGHT IS WITHIN REACH.
--- NOTE | 2017-06-09 21:43 | NUR ---
CHARGE NURSE ROUNDING NOTE: PT RESTING, ABD INCISION CDI. SS IN PLACE. , CALVIN IN PLACE. NO C/O PAIN OR N/V AT THIS TIME
--- NOTE | 2017-06-09 21:45 | NUR ---
ASSESSED PT AND ADMINISTERED MEDICATIONS. REPLACED SEVERAL STERI STRIPS DOWN MIDLINE INCISION THEY HAD FALLEN OFF AFTER SHOWER. INFERIOR I INCH OF INCISION WAS SLIGHTLY OPEN PLACED STERI STRIPS TO CLOSE INCISION FULLY. CALVIN DRAIN WAS NOT DRAINING, OPENED AND CREATED BETTER SUCTION AND IT IS DRAINING AGAIN. PT UP TO RESTROOM AND BACK TO BED, SHE DENIES FUTHER NEEDS AT THIS TIME. CALL LIGHT IS WITHIN REACH.
--- NOTE | 2017-06-09 23:22 | NUR ---
PT IS RESTING WITH EYES CLOSED, RESPIRATIONS EVEN AND NONLABORED, AND CALL LIGHT IS WITHIN REACH.
--- NOTE | 2017-06-10 01:22 | NUR ---
PT IS RESTING WITH EYES CLOSED, RESPIRATIONS EVEN AND NONLABORED. CALL LIGHT IS WITHIN REACH.
--- NOTE | 2017-06-10 02:51 | NUR ---
PT IS RESTING WITH EYES CLOSED, RESPIRATIONS EVEN AND NONLABORED. CALL LIGHT IS WITHIN REACH.
--- NOTE | 2017-06-10 05:30 | NUR ---
HELPED PT TO RESTROOM AND BACK TO BED AND ADMINISTERED IV TORADOL. PT STATES PAIN IS 7/10 AT THIS TIME. CALL LIGHT IS WITHIN REACH AND FRESH WATER IS AT BEDSIDE.
--- NOTE | 2017-06-10 06:13 | NUR ---
PT CALLED REQUESTING MORE PAIN MEDS. ADMINISTERED 2 PERCOCET FOR 9/10 PAIN. PT DENIES FURTHER NEEDS AT THIS TIME. CALL LIGHT IS WITHIN REACH.
--- NOTE | 2017-06-10 06:14 | NUR ---
PT SLEPT WELL THROUGHT THE NIGHT BUT MAY HAVE GONE TOO LONG WITHOUT PAIN MEDS SHE RATES HER PAIN 9/10 AT THIS TIME. PT IS RECEIVING IV TORADOL AND PO PERCOCET. CALVIN DRAIN PUT OUT 5 MLS OVER NIGHT. MIDLINE INCISION HAS STERI STRIPS IN PLACE AND INFERIOR BOTTOM INCH IS OPENING. PT IS ON A SOFT DIET AND PO ABX. SHE WAS ON 1 L NC THROUGH THE NIGHT AND BACK ON RA WHILE AWAKE.
--- NOTE | 2017-06-10 08:15 | NUR ---
PT IN BED, DONE WITH BREAKFAST, NOT HUNGRY. PT CLAIMS SHE SLEPT WELL, BUT WOKE IN PAIN. REFUSED GETTING IN CHAIR. FRESH WATER AND ICE PACK. CALL LIGHT IN REACH. TRASH EMPTIED.
--- NOTE | 2017-06-10 09:08 | NUR ---
PT IN BED, AWAKE, ALERT, ORIENTED X 4. PT RATED PAIN TO ABDOMEN 5/10, GAVE MOTRIN 600 MG PO PRN. PT DENIED NAUSEA, REPORTED THAT SHE TOLERATED BREAKFAST OF PANCAKES WELL. PERSONAL SUPPLIES AN CALL LIGHT IN REACH.
--- NOTE | 2017-06-10 10:13 | NUR ---
PATIENT UP IN BED, ROOM DIMLY LIT. BOYFRIEND AT BEDSIDE. GRANDSON AND FRIEND ON COUCH. VITALS DONE. NO OTHER NEEDS.
--- NOTE | 2017-06-10 10:55 | NUR ---
PATIENT SITTING UP IN BED, JULIANA PEREIRA IN ROOM. THIS CASING BUILDER WANTED TO GET PT UP WALKING, PT STATED SHE WAS JUST UP AND AMBULATED AROUND NURSES STATION.
--- NOTE | 2017-06-10 10:56 | NUR ---
PT IN BED, VISITING WITH SON AND GRANDSON. REPORTED 6/10 PAIN TO ABDOMEN. GAVE PERCOCET 7.5/325 MG, 2 TABS PO PRN. PERSONAL SUPPLIES AND CALL LIGHT IN REACH. ICE PACK TO INCSION.
--- NOTE | 2017-06-10 11:02 | NUR ---
PT REPORTED THAT SHE AMBULATED IN HALLS WITH FAMILY. REPORTED THAT SHE TOLERATED WELL.
--- NOTE | 2017-06-10 12:00 | NUR ---
PT C/O NAUSEA. DECLINED LUNCH. GAVE ZOFRAN 4 MG IV PRN. PERSONAL SUPPLIES AND CALL LIGHT IN REACH.
--- NOTE | 2017-06-10 12:10 | NUR ---
FRESH ICE IN PACK. BOYFRIEND IN ROOM. ROOM STILL DIM, PATIENT STATES SHES NOT FEELING WELL, DIDN'T FEEL LIKE EATING LUNCH. CALL LIGHT IN REACH. NO OHTER NEEDS.
--- NOTE | 2017-06-10 12:59 | NUR ---
PT UP, AMBULATING IN HALLS WITH AT SIDE. TOLERATING WELL.
--- NOTE | 2017-06-10 13:20 | NUR ---
PATIENT RESTING IN BED, BOYFRIEND AT BEDSIDE. DR DUNBAR CAME IN BEHIND THIS CATERER HELPER. WILL GO BACK IN FOR VITALS
--- NOTE | 2017-06-10 13:47 | NUR ---
PT IN BED, SLEEPING SOUNDLY. BOYFRIEND AT BEDSIDE. NO S/S DISTRESS OR DISCOMFORT. PERSONAL SUPPLIES AND CALL LIGHT IN REACH.
--- NOTE | 2017-06-10 14:52 | NUR ---
PATIENT WATCHING TV IN BED. BOYFRIEND AT BEDSIDE. BOYFRIEND IS CONCERNED HER COMPLEXION IS PALE AND FEELS WARM TO TOUCH. PT HAS TEMP OF 97.5 VITALS AND I/OS DONE. CALL LIGHT IN REACH NO OTHER NEEDS.
--- NOTE | 2017-06-10 15:51 | NUR ---
PT IN BED, BOYFRIEND AT SIDE. REPORTED ABDOMINAL PAIN 6/10. GAVE PERCOCET 2 TABS PO PRN. MIDLINE ABDOMINAL INCISION WNL, NO CHANGE FROM AM ASSESSMENT. BOWEL TONES ACTIVE X 4. HRR, LUNGS CTA. PERSONAL SUPPLIES IN REACH, IS CALL LIGHT.
--- NOTE | 2017-06-10 17:00 | NUR ---
PT IN BED, EATING DINNER. BROUGHT PT MARCO ANTONIO COKER PER PT'S REQUEST. PERSONAL SUPPLIES AND CALL LIGHT IN REACH. DENIED OTHER NEEDS AT THIS TIME.
--- NOTE | 2017-06-10 17:30 | NUR ---
PT IN BR. FAMILY IN ROOM. STRAIGHTENED BED AND CHANGED PILLOWCASES. VITALS AND I/OS DONE. THIS DEPARTMENT SPECIALIST ENCOURAGED PT TO WALK AND US I/S. CALL LIGHT IN REACH. NO OTHER NEEDS THIS TIME.
--- NOTE | 2017-06-10 18:42 | NUR ---
PT UP INDEPENDANTLY IN HALLS, AMBULATED IN HALLS X 3. LLQ CALVIN INTACT, MINIMAL SEROSANGUAINOUS DRAINAGE OUT. PT TOLERATING REGULAR DIET. MIDLINE ABD INCISION DOM, FEW STERI STRIPS IN PLACE. LOWER PORTION OF MIDLINE INCISION WIDER THAN REST, BUT INTACT, NO FRESH DRAINAGE. PT TOOK PRN TORADOL, AND PRN PERCOCET FOR ABDOMINAL PAIN. PASSING GAS, BUT NO BM THUS FAR. IVs SALINE LOCKED.
--- NOTE | 2017-06-10 19:05 | NUR ---
IN ROOM FOR REPORT, PT AWAKE ON AND OFF AND HAS A VISITOR IN THE ROOM. PT DENIES NEEDS AT THIS TIME. CALL LIGHT IS WITHIN REACH.
--- NOTE | 2017-06-10 21:58 | NUR ---
RN NOTIFIED RE VITAL SIGNS.
--- NOTE | 2017-06-10 22:35 | NUR ---
WOKE PT TO ADMINISTER PAIN MEDICATIONS TO KEEP PAIN UNDER CONTROL. HOLDING OFF ON SONATA AT THIS TIME BECAUSE PT IS DROWSY AND HAS BEEN ALOT DURING THE DAY WELL. PT DENIES FURTHER NEEDS AT THIS TIME.
--- NOTE | 2017-06-10 23:05 | NUR ---
RECHECKED PT'S BP AFTER A LOW READING, BP IS NOW 102/66 PULSE OF 73.
--- NOTE | 2017-06-11 01:40 | NUR ---
PT IS RESTING WITH EYES CLOSED, RESPIRATIONS EVEN AND NONLABORED, CALL LIGHT IS WITHIN REACH.
--- NOTE | 2017-06-11 02:55 | NUR ---
WOKE PT TO GIVE IV TORADOL. PT RATES PAIN AT 7/10 AT THIS TIME. CALVIN DRAIN HAD 5 MLS OF DRAINAGE SINCE 7PM. FRESH ICEWATER AT BEDSIDE. PT IS UP TO RESTROOM AT THIS TIME.
--- NOTE | 2017-06-11 04:10 | NUR ---
REASSESSED PT'S PAIN, SHE IS 5/10 AT THIS TIME. ADMINISTERED 1 PERCOCET. PT DENIES FURTHER NEEDS AT THIS TIME.
--- NOTE | 2017-06-11 05:45 | NUR ---
WOKE PT THROUGH THE NIGHT TO MAKE SURE TORADOL AND PERCOCET WERE ALTERNATED TO KEEP HER PAIN UNDER CONTROL. HELD PT'S SONATA LAST NIGHT SHE HAS NOT HAD ANY PROBLEMS SLEEPING WITH THE PAIN MEDICINE. INCISION REMAINS INTACT WITH LOWER INCH LEFT OPEN TO HELP DRAINAGE. CALVIN DRAIN PUT OUT 5 MLS OF SEROUS FLUID WITH SMALL CLOTS. PT IS INDEPENDENT IN ROOM AND ON A SOFT DIET.
--- NOTE | 2017-06-11 05:59 | NUR ---
PT IS RESTING WITH EYES CLOSED, RESPIRATIONS EVEN AND NONLABORED. CALL LIGHT IS WITHIN REACH.
--- NOTE | 2017-06-11 07:13 | NUR ---
RECIEVED REPORT AT PT'S DOORWAY, PT WAS SLEEPING SOUNDLY. THIS RN CHECKED PT. PT ON RA, IVS SL, NO S/S DISTRESS OR DISCOMFORT. PERSONAL SUPPLIES AND CALL LIGHT IN REACH.
--- NOTE | 2017-06-11 08:15 | NUR ---
DR. DUNBAR IN TO SEE PT, REMOVED CALVIN DRAIN. DISCUSSED DISCHARGE PLAN. PT VERBALIZED UNDERSTANDING, QUESTIONS ASKED AND ANSWERED.
--- NOTE | 2017-06-11 08:16 | NUR ---
PT REPORTED 6/10 PAIN TO ABDOMEN. GAVE PERCOCET 7.5/325 MG, 2 TABS PO PRN.
[2017-06-11] MEDS ORDERED: CIPROFLOXACIN500 MG PO (08:24)
[2017-06-11] MEDS ORDERED: IBUPROFEN600 MG PO (08:25)
[2017-06-11] MEDS ORDERED: METRONIDAZOLE250 MG PO (08:25)
[2017-06-11] MEDS ORDERED: OXYCODON-ACETA1 EAC2 PO (08:25)
[2017-06-11] MEDS ORDERED: MAPAP325 MG PO (08:26)
--- NOTE | 2017-06-11 09:09 | NUR ---
PATIENT SITTING UP IN BED. RN GIVING DISCHARGE INSTRUCTIONS. FRESHWATER GIVEN. CALL LIGHT IN REACH. NO OTHER NEEDS AT THIS TIME.
--- NOTE | 2017-06-11 09:17 | NUR ---
PT GIVEN DISCHARGE INSTRUCTIONS. NOTIFIED PT THAT DR. DUNBAR D/C'D HER HOME MEDICATION, MOBIC. PT REQUESTED THAT SHE BE ALLOWED TO CONTINUE HER HOME MOBIC, AND NOT TAKE THE NEWLY ORDERED MOTRIN. NOTIFIED DR. DUNBAR OF PT'S REQUEST THROUGH NIRAV Chairez RN, DR. DUNBAR IN OR. NIRAV Chairez RN RELAYED THAT DR. DUNBAR STATED THAT PT MAY DO SHE IS REQUESTING.
[2017-06-11] MEDS ORDERED: MOBIC15 MG PO (09:22)
--- NOTE | 2017-06-12 13:58 | DS ---
[facility] [address], [place] [address] Signed ADMISSION DATE: 06/07/2017 DISCHARGE DATE: 06/11/2017 HISTORY OF PRESENT ILLNESS: This 57-year-old obese woman had 3 days of increasing abdominal pain including right-sided flank pain. She was under the misapprehension, she had recurrent renal stones. She has had kidney stones in the past of course. Her pain worsened and essentially was intolerable and she presented to the emergency room where she was evaluated by Dr. Marcial, who noted her to be markedly tender. A CT scan of the abdomen to confirm nephrolithiasis showed no such finding, but did show findings consistent with severe advanced appendicitis. She was admitted for further evaluation and care. PERTINENT PHYSICAL EXAMINATION: GENERAL: Showed an obese woman who looks to be in moderate discomfort. HEENT: Mucous membranes are dry. Trachea midline. CHEST: Clear without wheeze or rhonchi. HEART: Regular without murmur. ABDOMEN: Quite obese. Rovsing sign is positive. There is marked tenderness at McBurney point. There is a right abdominal transverse incision related to lap band device from the past. LABORATORY DATA: White count was 7.8, hematocrit 40.7, and platelets 389,000. Electrolytes with potassium of 3.2, glucose 132. Urinalysis showed 5 red cells per high-power field. HOSPITAL COURSE: She was admitted given fluid resuscitation and taken to the operation where laparoscopy was performed. She had generalized peritonitis with purulent material throughout the abdomen. Irrigation of this mucopurulent and fibrinous exudate was undertaken. Interrogation of the right lower quadrant did not allow for mobilization of a very densely inflamed and scarred cecum to the retroperitoneum. A pelvic abscess was noted. This was drained as well. Conversion to open operation with a low midline laparotomy incision was made. She was found to have perforated appendicitis as the etiology of her problem. The appendix was excised without problem and a drain was placed. Broad-spectrum antibiotic Zosyn was given preoperatively and maintained postoperatively. Postoperatively, Rodríguez catheter was allowed to remain in place, monitoring urine output. It was promptly removed thereafter. Clear liquid diet was initiated and she was found on cultures to have E. coli as part of the pelvic abscess that was drained. The drain Electronically Signed By: EDOUARD DUNBAR MD 06/12/17 1358 PATIENT NAME: SADAF CHATMAN DISCHARGE SUMMARY DATE OF : 58 REPORT #: [id number] PHYSICIAN: EDOUARD DUNBAR MD PCP: FREDY SNYDER DO REPORT IS CONFIDENTIAL AND NOT TO BE RELEASED WITHOUT AUTHORIZATION [address] [address] Signed that was placed cleared rather rapidly. By time of discharge, it was able to be removed. She was transitioned to Cipro and Flagyl orally administered a day prior to discharge. By day of discharge, she is ambulating well, tolerating a regular diet. The drain has been pulled and she is doing well. Her preoperative medications, which were largely related to chronic pain problems were re-initiated as well. DISCHARGE MEDICATIONS: 1. Cipro 500 mg p.o. b.i.d. #10. 2. Flagyl 250 mg p.o. t.i.d. #15. 3. Motrin 600 mg p.o. q.6 hours p.r.n. pain #60. 4. Percocet 7.5/325 1-2 p.o. q.4 hours p.r.n. pain, #20. 5. Tylenol 650 mg p.o. q.6 hours as needed, quantity #60. She will resume her cyclobenzaprine (Flexeril 5 mg 1-2 tabs as needed for neck pain). 6. Gabapentin (Neurontin) 300 mg p.o. daily. 7. Zolpidem 5 mg tablet 5 mg p.o. at bedtime for sleep. 8. Fluticasone propionate 50 mcg two sprays nasal every day. 9. Alprazolam 0.5 mg one tablet p.o. daily as needed for anxiety. 10. Duloxetine 1 cap p.o. daily 60 mg. 11. Senna one tablet p.o. daily. She will hold on her hydrocodone and meloxicam for the time being while she is taking other postoperative medications. FOLLOWUP PLAN: She is to return to see me in approximately 4 weeks. She is to lift no more than 20 pounds for [address] while taking opiate medication. DISCHARGE DIAGNOSES: 1. Intraabdominal abscess and pelvic abscess (Escherichia coli). 2. Perforated appendicitis status post open appendectomy following laparoscopic peritoneal lavage and drainage of abscess. 3. Obesity. 4. History of laparoscopic band placement. 5. Chronic neck pain. MD MARANDA Garzon/SALTY /[id number] Electronically Signed By: EDOUARD DUNBAR MD 06/12/17 1358 PATIENT NAME: COMPASADAF Isrrael DISCHARGE SUMMARY DATE OF : 58 REPORT #: [id number] PHYSICIAN: EDOUARD DUNBAR MD PCP: FREDY SNYDER DO REPORT IS CONFIDENTIAL AND NOT TO BE RELEASED WITHOUT AUTHORIZATION [address] [place], [place] [address] Signed cc: DO Dr. Aggie Rios MD Copies: FREDY SNYDER SHELDON MD ~ Electronically Signed By: EDOUARD DUNBAR MD 06/12/17 1358 PATIENT NAME: SADAF CHATMAN DISCHARGE SUMMARY DATE OF : 58 REPORT #: [id number] PHYSICIAN: EDOUARD DUNBAR MD PCP: FREDY SNYDER DO REPORT IS CONFIDENTIAL AND NOT TO BE RELEASED WITHOUT AUTHORIZATION
== END 2017-06-11 09:30 | disposition home or self-care (01) | DRG 340 ==
LOC: ED 14:39 → MS 17:31
PROVIDERS: ADMIT Surgery
PROC: 0DTJ0ZZ Resection of Appendix, Open Approach (ICD-10-PCS; principal; 2017-06-07 20:00)
PROC: 0DJD4ZZ Inspection of Lower Intestinal Tract, Percutaneous Endoscopic Approach (ICD-10-PCS; principal; 2017-06-07 20:00)
DX: K35.2 Acute appendicitis with generalized peritonitis (principal); Z53.31 Laparoscopic surgical procedure converted to open procedure; Z98.84 Bariatric surgery status; Z87.442 Personal history of urinary calculi
CPT/HCPCS: 00840; 36415; 74176; 80048; 80053; 81001; 84586; 85025; 87070; 87075; 87076; 87077; 87185; 87186; 87205; 96374; 96375; 96376; 99285; J0131; J1170; J1644; J1885; J2250; J2270; J2370; J2405; J2543; J2704; J3010; J7030; J7120

== ENCOUNTER 2021-01-14 07:10 | Day surgery (SDC) | payer OTHER ==
[~2021-01-14] VITALS: Ht 162.6 cm; Wt 78.2 kg
[~2021-01-14 07:10] MED LIST: ALPRAZOLAM0.5 MG PO; CIPROFLOXACIN500 MG PO; CYCLOBENZAPRINE5 MG PO; CYMBALTA30 MG PO; DULOXETINE HCL60 MG PO; FLUTICASONE PRO16 GM NAS; GABAPENTIN100 MG PO; HYDROCODON-ACE1 EAC8 PO; IBUPROFEN600 MG PO; MAPAP325 MG PO; METRONIDAZOLE250 MG PO; MOBIC15 MG PO; NEURONTIN300 MG PO; NORCO 5-325 TA1 EACH PO; OXYCODON-ACETA1 EAC2 PO; SENNA-DOCUSATE1 EAC1 PO; ZOLPIDEM TARTRAT5 MG PO
[2021-01-14] MEDS ORDERED: HYDROCODON-ACE1 EA11 PO (07:26)
[2021-01-14] MEDS ORDERED: PRILOSEC OTC20 MG PO (07:40)
[2021-01-14] MEDS ORDERED: PEPCID20 MG PO (07:40)
[2021-01-14] MEDS ORDERED: XANAX0.5 MG PO (07:41)
[2021-01-14] MEDS ORDERED: OXYCODON-ACETA1 EAC2 PO (11:18)
[2021-01-14] MEDS ORDERED: MOTRIN IB200 MG PO (11:19)
[2021-01-14] MEDS ORDERED: TYLENOL EXTRA500 MG PO (11:19)
--- NOTE | 2021-01-16 10:34 | OR ---
[facility] [address], [place] [address] Signed DATE OF OPERATION: 01/14/2021 SURGEON: Edouard Dunbar MD PREOPERATIVE DIAGNOSIS: Right upper outer quadrant infiltrating ductal breast carcinoma. POSTOPERATIVE DIAGNOSES: 1. Right upper outer quadrant infiltrating ductal breast carcinoma. 2. Negative sentinel lymph nodes x4 on frozen pathology. PROCEDURES: 1. Injection of methylene blue dye for sentinel lymph node identification. 2. Right deep axillary sentinel lymph node biopsies x5. 3. Right partial mastectomy (large defect). 4. Right oncoplastic breast wound closure including breast pedicle advancement flaps, excision of redundant skin and closure. ANESTHESIA: General and LMA. Edouard Alexandra CRNA. INDICATIONS: This 60-year-old white woman is well known to me from the past having undergone appendectomy in March 2018. She is a patient of Dr. Cody Snyder of [facility]. She felt a mass in the upper outer aspect of the right breast. Underwent mammography finding a lesion highly suspicious for malignancy. Her previous mammogram had been at least four years previously. She underwent core biopsy by the radiologist in [place] confirming an invasive ductal carcinoma with an overall grade of 2/3. There was no evidence of lymphovascular invasion. There was some ductal carcinoma in situ component. She is self-referred for more definitive treatment of the cancer. I have reviewed the options of management with her in detail including that of mastectomy versus partial mastectomy, radiation therapy and adjuvant therapy as appropriate. The risks of bleeding, infection, cosmetic deformity, need for additional treatment, need for additional surgery, and other unforeseen complications related to breast cancer treatment from a conservative approach were reviewed in detail and well understood. FINDINGS: The mass of the right breast is in the upper outer aspect only a few cm from the areolar Electronically Signed By: EDOUARD DUNBAR MD 01/16/21 1034 PATIENT NAME: SADAF CHATMAN OPERATIVE REPORT DATE OF : 58 REPORT #: [id number] PHYSICIAN: EDOUARD DUNBAR MD PCP: CODY SNYDER DO REPORT IS CONFIDENTIAL AND NOT TO BE RELEASED WITHOUT AUTHORIZATION [facility] [address], [place] [address] Signed margin itself. A rather large defect resulted from excision maintaining clinically negative margins. On that basis, breast pedicles were mobilized from the pectoralis allowing for closure of the defect and much improvement of the cosmetic defect. As regards the axilla, good uptake of radionuclide which had been injected yesterday was noted. Good uptake of methylene blue dye was also noted. Three quite obvious and bonafide sentinel lymph nodes were excised as well as to others that had high radio active uptake but had fibrosis and fatty tissue and uncertain if actual lymph node tissue. Frozen pathology by Dr. Gonzalez confirmed three of the five presumed sentinel lymph nodes negative for metastatic disease to pending final pathology. There were no complications. PROCEDURE IN DETAIL: The patient was brought to the operating room and given a general LMA type anesthetic. Preoperative antibiotic Ancef was given. Sequential compression device stockings used and heparin subcutaneously administered. Injection of 2 mL of methylene blue dye in the subepithelial space in the upper outer aspect of the right breast was undertaken. Interrogation of the axilla and breast tissue with the C-Trak probe from injection of unfiltered radionuclide from yesterday was undertaken showing avid uptake in the mid to upper axilla. After sterile preparation with a chlorhexidine solution and draping the gamma probe was placed into a sterile sheath and interrogation of the abdomen undertaken. In the area of maximal uptake, a small transverse incision was made. Dissection was carried through the subcutaneous tissue. Immediately noted were blue lymphatics. These were followed to a relatively large 2 cm lymph node which had avid radionuclide uptake as well as dye uptake. This was excised with some surrounding soft tissue and and found to have two lymph nodes, both of them radioactive uptake, avid and the dominant lymph node with blue type. Having been passed for frozen pathology. Additional dissection was undertaken identifying three other areas consistent with probable sentinel lymph nodes based on radionuclide uptake and blue dye. The remaining axilla appeared to have no additional radioactive uptake and the wound was then packed with gauze. The mass was in the upper outer aspect of the right breast and was a bit larger than usual likely related to desmoplastic response. A curvilinear incision was made extending from the 1 O'clock to 9 O'clock position in the right areolar margin. Dissection carried through the dermis with electrocautery. Given the need for a negative margin for both DCIS and infiltrating ductal carcinoma the medial aspect was defined and dissected free at first. This was undertaken with electrocautery extending directly straight down to the pectoralis fascia in the areolar margin. Dissection was undertaken superiorly, inferiorly and then beneath the lateral skin flap maintaining a clinically negative margin throughout. Wide resection was definitely undertaken clearly Electronically Signed By: EDOUARD DUNBAR MD 01/16/21 1034 PATIENT NAME: SADAF CHATMAN OPERATIVE REPORT DATE OF : 58 REPORT #: [id number] PHYSICIAN: EDOUARD DUNBAR MD PCP: CODY SNYDER DO REPORT IS CONFIDENTIAL AND NOT TO BE RELEASED WITHOUT AUTHORIZATION [address], [place] [address] Signed a partial mastectomy. Once excised, the specimen was oriented with sutures, long stitch lateral, short stitch superior, small illustration sent with the specimen to assure good orientation of the specimen. Irrigation was undertaken to the depths of the wound. Cautery had been used for hemostasis. The resultant defect was quite significant indeed. An oculoplastic closure would certainly be indicated. Inferomedial breast pedicle flap was elevated from the pectoralis fascia with blunt and electrocautery dissection mobilized cephalad. A similar such dissection was undertaken on the superior pedicle drawing the superior and lateral portions together. These were secured in layers of interrupted 2-0 Vicryl suture. The resultant parenchymal defect was minimized quite markedly. Obviously distortion was then noted with the skin. A keyhole type excision of skin laterally was undertaken and ultimately interrupted 2-0 Vicryl used to reapproximate the deep dermal layer. A running 4-0 nylon suture was used to secure the skin to allow for much improved cosmetic effect. By this time, frozen pathology had returned showing no evidence of metastatic disease to sentinel lymph nodes. Irrigation was undertaken in the axilla. Cautery used to assure hemostasis. The axilla was closed with interrupted 2-0 Vicryl and a running subcuticular 3-0 Vicryl. Steri-Strips were applied to the axillary incision. An Acticoat dressing was applied to the axilla as well as to the nipple-areolar complex. The patient was ultimately extubated and transferred to the recovery room in good condition having suffered no complication. Sponge, needle, and instrument counts reported as correct x3. MD MARANDA Garzon/SALTY /[id number] cc: DO Josephine Rios MD Electronically Signed By: EDOUARD DUNBAR MD 01/16/21 1034 PATIENT NAME: SADAF CHATMAN Isrrael OPERATIVE REPORT DATE OF : 58 REPORT #: [id number] PHYSICIAN: EDOUARD DUNBAR MD PCP: CODY SNYDER DO REPORT IS CONFIDENTIAL AND NOT TO BE RELEASED WITHOUT AUTHORIZATION [address] [address] Signed Copies: CODY SNYDER CYNTHIA SUE MD ~ Electronically Signed By: EDOUARD DUNBAR MD 01/16/21 1034 PATIENT NAME: SADAF CHATMAN Isrrael OPERATIVE REPORT DATE OF : 58 REPORT #: [id number] PHYSICIAN: EDOUARD DUNBAR MD PCP: CODY SNYDER DO REPORT IS CONFIDENTIAL AND NOT TO BE RELEASED WITHOUT AUTHORIZATION
--- NOTE | 2021-01-19 14:24 | PATH ---
[facility] [address] [facility] [place], [place] [address] Signed SPECIMEN(S): A SENTINEL LYMPH NODES 1 AND 2 SPECIMEN(S): B SENTINEL LYMPH NODES 3 AND 4 SPECIMEN(S): C SENTINEL LYMPH NODE 5 SPECIMEN(S): D RIGHT BREAST TISSUE SPECIMEN SOURCE: A. SENTINEL LYMPH NODES 1 AND 2 B. SENTINEL LYMPH NODES 3 AND 4 C. SENTINEL LYMPH NODE 5 D. RIGHT BREAST TISSUE CLINICAL HISTORY: Right breast cancer. Invasive ductal carcinoma. FROZEN SECTION DIAGNOSIS: A.[place]ford lymph nodes #1 and #2:Two lymph nodes, negative for metastatic carcinoma. (Dr. Gonzalez, 01-14-21 at 1019 hrs.) C.[place]ford lymph node #5:One lymph node, negative for metastatic carcinoma. (Dr. Gonzalez, 01-14-21 at 1019 hrs.) INTRAOPERATIVE CONSULT: B. [place]ford lymph nodes #3 and #4:No grossly palpable lymph nodes identified; gross diagnosis only. (Dr. Gonzalez, 01-14-21 at 1019 hrs.) The Gross Description was prepared using a voice recognition system. The report was reviewed for accuracy; however, sound-alike word errors, addition and/or deletions may occur. If there is any question about this report, please contact Client Services. FINAL PATHOLOGIC DIAGNOSIS: A. Lymph nodes, sentinel nodes #1 and #2, dissection: - Two benign lymph nodes (0/2). - Properly controlled immunohistochemical stains for hua cytokeratin (AE1/AE3) were performed on blocks A1 and A2 and were negative for tumor cells. B. Lymph nodes, sentinel nodes #3 and #4, dissection: - Benign fibroadipose tissue and breast parenchyma. - No lymph nodes identified. - Properly controlled immunohistochemical stains for hua cytokeratin (AE1/AE3) were performed on blocks B1 and B4 and were positive in unremarkable ductal epithelium. C. Rexford lymph node #5, dissection: - One benign lymph node (0/1). - Properly controlled immunohistochemical stain for hua cytokeratin (AE1/AE3) PATIENT NAME: SADAF DOYLE PATHOLOGY DATE OF : 58 REPORT #: [id number] PHYSICIAN: CHRISSIE TATE PCP: FREDY SNYDER DO REPORT IS CONFIDENTIAL AND NOT TO BE RELEASED WITHOUT AUTHORIZATION [facility] [address] [place], [place] [address] Signed was performed on block C1 and was negative for tumor cells. D. Right breast tissue, lumpectomy: - Invasive ductal carcinoma with the following features: - Tumor site: 10 o'clock position (per previous biopsy, see [id number]). - Tumor size: 14 mm in greatest dimension. - Histologic type: Invasive carcinoma, no special type (ductal). - Histologic grade (Lakshmi histologic score): - Glandular (acinar)/tubular differentiation score: 3 of 3. - Nuclear pleomorphism score: 2 of 3. - Mitotic rate score: 1 of 3. - Overall grade: II/III (total score 6/9). - Associated in situ component: DCIS is present, intermediate grade, solid type, negative for central expansive comedonecrosis. - Margins: - Invasive: Uninvolved by invasive carcinoma. - Lateral margin: 9 mm. - All other margins at least 9 mm away. - DCIS: Uninvolved by DCIS. - Lateral margin: 6 mm. - All other margins at least 6 mm away. - Regional lymph nodes: - Uninvolved by tumor cells. - Total number of lymph nodes examined: 3. - Number of sentinel lymph nodes examined: 3. - Treatment effect: No known presurgical therapy. - Additional pathologic findings: Biopsy site changes. - Estrogen receptor, progesterone receptor, HER2 by FISH: Please refer to studies previously performed (see [id number]), which was reported as ER greater than 95%, OR 80%, and HER2 negative by FISH. - Surgical pathology stage: pT1c(sn) pN0. COMMENT: As part of [facility] Quality Improvement Program, this case was reviewed by another member of our pathology staff. DF:NRT:bg:C1NR MICROSCOPIC EXAMINATION: Histologic sections of all submitted blocks are examined by light microscopy. These findings, together with the gross examination, support the pathologic PATIENT NAME: SADAF DOYLE PATHOLOGY DATE OF : 58 REPORT #: [id number] PHYSICIAN: CHRISSIE TATE PCP: FREDY SNYDER DO REPORT IS CONFIDENTIAL AND NOT TO BE RELEASED WITHOUT AUTHORIZATION [address] [address] Signed diagnosis. GROSS DESCRIPTION: Four specimens are received in four containers, labeled "Sadaf Doyle." A. The specimen, labeled "Sadaf Doyle, sentinel lymph node #1 and #2," is received fresh for frozen section diagnosis and consists of two possible lymph nodes with adipose tissue that measure 1.4 cm and 1.0 cm in greatest dimension. The larger lymph node is inked and sectioned revealing a blue dye discoloration. The lymph nodes are entirely submitted for frozen section, resubmitted as received in cassettes A1 and A2. Only adipose tissue remains within the container. B. The specimen, labeled "Sadaf Doyle, sentinel lymph nodes #3 and #4," is received fresh for intraoperative diagnosis and consists of two portions of yellow-weston adipose tissue that measure 4.5 x 2.6 x 1.1 cm and 4.0 x 1.5 x 0.9 cm. Upon palpation no lymph nodes are grossly identified. The tissue fragments are arbitrarily inked, sectioned and entirely submitted in cassettes (B1-B6). C. The specimen, labeled "Sadaf Doyle, sentinel lymph node #5," is received fresh for frozen section diagnosis and consists of one possible lymph node with attached adipose tissue that is 0.5 cm in greatest dimension. The specimen is entirely submitted for frozen section, resubmitted as received in cassette (C1). D. The specimen, labeled "Sadaf Doyle, right breast tissue," is received in formalin and consists of a 69 gram, oriented portion of yellow-weston fibroadipose tissue that is 7.3 x 7.0 x 3.6 cm. A short suture is present and identifies the superior margin; a long suture identifies the lateral margin. The specimen is inked as follows: Superior - blue; inferior - green; medial - red; lateral - orange; anterior - yellow; and posterior - black. The specimen is serially sectioned from superior to inferior into twelve slices revealing a 1.4 x 1.2 x 1.2 cm, more white stellate mass present in slices 2-5 with an adjacent 1.5 x 0.9 x 0.9 cm, hemorrhagic biopsy cavity in slices 4-6. The mass is 1.9 cm from the anterior soft tissue margin, 2.2 cm from the posterior soft tissue margin, 1.3 cm from the superior soft tissue margin, 3.2 cm from the inferior soft tissue margin, 1.1 cm from the medial soft tissue margin, and 0.9 cm from the lateral soft tissue margin. Approximately 95% of the remaining specimen is a yellow-weston, greasy adipose tissue and 5% is a white-weston, delicate fibrous tissue. Auditing Specialist sections are submitted in eleven cassettes. Cassette summary: PATIENT NAME: SADAF DOYLE PATHOLOGY DATE OF : 58 REPORT #: [id number] PHYSICIAN: CHRISSIE TATE PCP: FREDY SNYDER DO REPORT IS CONFIDENTIAL AND NOT TO BE RELEASED WITHOUT AUTHORIZATION [facility] [address] [place], [place] [address] Signed (D1-D2) superior soft tissue resection margin, perpendicular, sales representative graphic art sections (D3-D7) slice 4 with mass* (D8) mass to hemorrhagic biopsy cavity and lateral soft tissue resection margin, perpendicular, slice f5 (D9) fibroadipose tissue superior to mass slice 2 (D10) fibroadipose tissue inferior to mass slice 7 (D11) inferior soft tissue resection margin, slice 12, sales representative graphic art sections. *A top-hat shaped clip is located in (D7) at microtomy Cold ischemia time: Insufficient data to calculate. Approximate Formalin time: 48-72 hours. FB (under the direct supervision of a pathologist) ADDITIONAL NOTES: Immunohistochemical and/or in situ hybridization studies were performed on this case with the appropriate positive controls that react as expected. This test was developed and its performance characteristics determined by [facility]. It has not been cleared or approved by the U.S. Food and Drug Administration. The FDA has determined that such clearance or approval is not necessary. This test is used for clinical purposes. It should not be regarded as investigational or for research. [facility] is certified under the Clinical Laboratory Improvement Amendments of 1988 (CLIA) as qualified to perform high complexity clinical laboratory testing. This assay has not been validated for specimens that have been decalcified. PERFORMING LABORATORY: Frozen section performed at [facility], [address] [facility] [address] (CLIA#: [id number]) The technical component was performed by [facility], [address] [place] [id number] (Rotor Pilot: Dennise Coronado MD; CLIA# [id number]). [facility], [address] [address] (CLIA# [id number]). Diagnostician: Elliott Mcintosh DO Pathologist Electronically Signed 01/19/2021 PATIENT NAME: SADAF DOYLE PATHOLOGY DATE OF : 58 REPORT #: [id number] PHYSICIAN: CHRISSIE PATHOLOGY PCP: FREDY SNYDER DO REPORT IS CONFIDENTIAL AND NOT TO BE RELEASED WITHOUT AUTHORIZATION [facility] [address] [place], [place] [address] Signed Copies: ~ PATIENT NAME: COMPASADAF Isrrael PATHOLOGY DATE OF : 58 REPORT #: [id number] PHYSICIAN: CHRISSIE PATHOLOGY PCP: FREDY SNYDER DO REPORT IS CONFIDENTIAL AND NOT TO BE RELEASED WITHOUT AUTHORIZATION
== END 2021-01-14 13:10 | disposition home or self-care (01) ==
LOC: DS 07:10 → OPS 07:10 → DS 08:15 → OPS 08:15
PROVIDERS: ATTEND Surgery
PROC: 0HBT0ZZ Excision of Right Breast, Open Approach (ICD-10-PCS; principal; 2021-01-14 08:15)
PROC: 07B60ZX Excision of Left Axillary Lymphatic, Open Approach, Diagnostic (ICD-10-PCS; 2021-01-14 08:15)
DX: C50.411 Malignant neoplasm of upper-outer quadrant of right female breast (principal); G89.29 Other chronic pain; M54.2 Cervicalgia; M19.90 Unspecified osteoarthritis, unspecified site; K21.9 Gastro-esophageal reflux disease without esophagitis; F41.0 Panic disorder [episodic paroxysmal anxiety]; Z88.5 Allergy status to narcotic agent
CPT/HCPCS: 00404; A9270; J0131; J0690; J1100; J1644; J1885; J2250; J2405; J2704; J2765; J3010; J7121; Q9968

== ENCOUNTER 2021-02-24 12:45 | Day surgery (SDC) | payer OTHER ==
[~2021-02-24] VITALS: Ht 315 cm; Wt 79.0 kg
[~2021-02-24 12:45] MED LIST changes: +HYDROCODON-ACE1 EA11 PO; +MOTRIN IB200 MG PO; +PEPCID20 MG PO; +PRILOSEC OTC20 MG PO; +TYLENOL EXTRA500 MG PO; +XANAX0.5 MG PO
--- NOTE | 2021-02-24 15:34 | NUR ---
02/24/21 1534 Karrie Jones 1530- PT ARRIVES TO PACU AWAKE AND TALKING. PT REPORTS NO PAIN OR NAUSEA. RESP EVEN AND UNLABORED. OXYGEN SAT HIGH 90'S ON 3L VIA CO2 NC. 1531- OXYGEN TITRATED OFF.
--- NOTE | 2021-02-25 14:35 | OR ---
[facility] [address] [place], [place] [address] Signed DATE OF OPERATION: 02/24/2021 SURGEON: Edouard Dunbar MD PREOPERATIVE DIAGNOSES: 1. Epigastric pain and reflux. 2. History of laparoscopic band surgery in the past. 3. Colon screening. POSTOPERATIVE DIAGNOSES: 1. Anatomy consistent with laparoscopic band without complication. 2. Mild proximal gastric pouch gastritis. 3. 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 No evidence of reflux esophagitis. 4. Normal colon, except for internal and external hemorrhoids. PROCEDURES: 1. Esophagogastroduodenoscopy with biopsy. 2. Total colonoscopy to cecum. ANESTHESIA: Intravenous sedation, fentanyl 200 mcg and Versed 12 mg. INDICATION: This 60-year-old white woman, who is a patient of Dr. Cody Snyder, known to me from the past having undergone recent breast cancer therapy. This included lumpectomy, sentinel lymph node biopsy, and so on. She is additionally now under the care of Dr. Angulo and Dr. Dorantes. She also has had laparoscopic banding a number of years ago and has reflux, which she says was not present prior to her operation. She does not have dysphagia per Se. Additionally, she is here to undergo colonoscopy for screening. Her last colonoscopy greater than 10 years ago and normal. She has no family history of colon cancer. No colonic symptoms. She understands the risks of bleeding, infection, and perforation related to upper endoscopy and colonoscopy and wished to proceed. FINDINGS: Upper endoscopy showed anatomy typical of gastric band procedure without sign of erosion. The proximal small pouch did have some gastritis. There was no sign of actual ulcer. There was a fibroepithelial-appearing polyp of the squamous mucosa of the distal Electronically Signed By: EDOUARD DUNBAR MD 02/25/21 1435 PATIENT NAME: SADAF CHATMAN OPERATIVE REPORT DATE OF : 58 REPORT #: [id number] PHYSICIAN: EDOUARD DUNBAR MD PCP: CODY SNYDER DO REPORT IS CONFIDENTIAL AND NOT TO BE RELEASED WITHOUT AUTHORIZATION [facility] [address] [place], [place] [address] Signed esophagus at the Z-line, which was biopsied, but not fully excised. Clips were applied to the site for hemostasis. The remaining stomach and duodenum showed no specific abnormalities. A CLOtest was negative 30 minutes post procedure. On colonoscopy, the prep was adequate. Complete colonoscopy was undertaken to the cecum. Visualization without intubation to the cecum was noted. There were extensive hemorrhoidal changes both internal and external, but no sign of diverticular formation, colitis, or polyp. PROCEDURE IN DETAIL: The patient was brought to the endoscopy suite and placed in the lateral decubitus position, given lidocaine topical hypopharyngeal anesthesia. She was given intravenous sedation to the point of slurred speech and nystagmus. A bite block was placed. An Olympus video upper endoscope was passed in the hypopharynx. The vocal cords appeared normal. The scope was passed down the esophagus, which was normal. The scope was passed in the stomach ultimately showing normal rugal folds. The pylorus was normal. Scope was passed through into the duodenum, which was normal. Biopsies were taken of the duodenum and scope was withdrawn and biopsy was then taken of the antrum. Retroflexed view was undertaken showing anatomy highly typical of a laparoscopic band procedure. There was no sign of collar ulceration. Antral biopsies for both MELYSSA and pathologic testing were undertaken. The scope was withdrawn to the proximal "pouch" (stomach proximal to the band), where there was chronic inflammation. Biopsies were obtained. The mucosa in the distal esophagus was normal, except for a 1 cm fibroepithelial appearing polyp. Two biopsies were taken of this without full excision. Blood was dripping from the site. Therefore, it was clipped with hemoclips x2. Biopsies were then taken of the normal mucosa of the esophagus. Further withdrawal allowed for biopsy of the midesophagus to assess for eosinophilic esophagitis. The scope was then removed. Plans were then made for colonoscopy. Additional sedation was given. Anorectal examination showed extensive hemorrhoidal disease considered grade 4. Digital rectal examination was normal. An Olympus video colonoscope was passed in the rectum and manipulated throughout the colon ultimately intubating the right colon. Abdominal wall stabilization allowed for further advancement of the scope ultimately to good visualization of the cecum but not intubation with it. The biopsy forceps was used to grasp the mucosa of the cecum, elevated it allowing for inspection. The scope was then withdrawn and examination throughout showed no sign of abnormality other than the hemorrhoidal disease of the internal and external areas. The scope was removed. The patient was taken to the recovery room in good condition. Electronically Signed By: EDOUARD DUNBAR MD 02/25/21 1926 PATIENT NAME: SADAF CHATMAN OPERATIVE REPORT DATE OF : 58 REPORT #: [id number] PHYSICIAN: EDOUARD DUNBAR MD PCP: CODY SNYDER DO REPORT IS CONFIDENTIAL AND NOT TO BE RELEASED WITHOUT AUTHORIZATION [address] [address] Signed CONCLUDING DIAGNOSIS: Proximal gastric pouch inflammation without esophagitis; fibroepithelial polyp of the mucosa. PLAN: We would have her continue with Pepcid, which she takes for symptom control. Consideration might be made for PPI medication if it is ineffective. As regards to colon, we would recommend repeat colonoscopy in 10 years as there was no findings of concern. MD MARANDA Garzon/SALTY /[id number] cc: DO Judy Rios MD Robert C Quackenbush, MD Copies: CODY SNYDER PARINA GUPTA MD QUACKENBUSH, ROBERT C MD ~ Electronically Signed By: EDOUARD DUNBAR MD 02/25/21 1435 PATIENT NAME: SADAF CHATMAN OPERATIVE REPORT DATE OF : 58 REPORT #: [id number] PHYSICIAN: EDOUARD DUNBAR MD PCP: CODY SNYDER DO REPORT IS CONFIDENTIAL AND NOT TO BE RELEASED WITHOUT AUTHORIZATION
--- NOTE | 2021-03-01 15:38 | PATH ---
[facility] [address] [facility] [place], [place] [address] Signed SPECIMEN(S): A DUODENAL BIOPSY SPECIMEN(S): B ANTRUM BIOPSY SPECIMEN(S): C STOMACH BIOPSY SPECIMEN(S): D EG JUNCTION POLYP SPECIMEN(S): E LOWER ESOPHAGEAL BIOPSY SPECIMEN(S): F ESOPHAGEAL BIOPSY SPECIMEN SOURCE: A. DUODENAL BIOPSY B. ANTRUM BIOPSY C. STOMACH BIOPSY D. EG JUNCTION POLYP E. LOWER ESOPHAGEAL BIOPSY F. ESOPHAGEAL BIOPSY CLINICAL HISTORY: Reflux; history of lap band; constipation. Post: Mild gastritis; internal hemorrhoid MICROSCOPIC DESCRIPTION: Histologic sections of all submitted blocks are examined by light microscopy. These findings, together with the gross examination, support the pathologic diagnosis. FINAL PATHOLOGIC DIAGNOSIS: A. Duodenum, biopsy: - No significant histopathology. B. Antrum, biopsy: - No significant histopathologic alterations. C. Stomach, biopsy: - No significant histopathologic alterations. D. EG junction, polypectomy: - Reflux esophagitis. - Mild acute esophagitis. - No evidence of Elena's esophagus. E. Lower esophagus, biopsy: - Portions of unremarkable squamous mucosa. F. Esophagus, biopsy: - Portions of unremarkable squamous mucosa. COMMENT: Regarding specimen A: The sections from the duodenal biopsy show portions of PATIENT NAME: SADAF DOYLE PATHOLOGY DATE OF : 58 REPORT #: [id number] PHYSICIAN: CHRISSIE TATE PCP: SZUMSKI,FREDY E DO REPORT IS CONFIDENTIAL AND NOT TO BE RELEASED WITHOUT AUTHORIZATION [facility] [address] [place], [place] [address] Signed duodenal mucosa with long fingerlike villi. There is no villous atrophy, crypt hyperplasia or intraepithelial lymphocytosis making a diagnosis of celiac disease unlikely. There is no evidence of peptic duodenitis, microorganisms, abnormal infiltrates or neoplasia. Regarding specimen B: The sections through the gastric biopsies show fragments of histologically unremarkable antral mucosa. There is no evidence of acute or chronic inflammation. There is no evidence of H. pylori, intestinal metaplasia, abnormal infiltrates or neoplasia Regarding specimen C: The sections through the gastric biopsies show fragments of histologically unremarkable oxyntic mucosa. There is no evidence of acute or chronic inflammation. There is no evidence of H. pylori, intestinal metaplasia, abnormal infiltrates or neoplasia. Regarding specimen D: The sections through the biopsy show strips of reactive appearing squamous mucosa with basal cell hyperplasia. The epithelium is infiltrated by some lymphocytes, a small numbers of eosinophils and an equally small number of neutrophils. No glandular mucosa or intestinal metaplasia is identified. Regarding specimen E: The biopsy shows normal appearing squamous epithelium. There is no evidence of acute or chronic inflammation. Regarding specimen F: The biopsy shows normal appearing squamous epithelium. There is no evidence of acute or chronic inflammation. TWK:cml:C2NR GROSS DESCRIPTION: Six specimens are received in six containers, labeled "Sadaf Doyle." A. The specimen, labeled "Sadaf Doyle, #1," and designated on the requisition "duodenum biopsy," is received in formalin and consists of two weston soft tissue fragments that measure 0.3 and 0.4 cm in greatest dimension. The specimen is entirely submitted in cassette (A1). B. The specimen, labeled "Sadaf Doyle, #2," and designated on the requisition "antrum biopsy," is received in formalin and consists of two weston soft tissue fragments that measure 0.4 and 0.5 cm in greatest dimension. The specimen is entirely submitted in cassette (B1). C. The specimen, labeled "Sadaf Doyle, #3," and designated on the requisition "stomach biopsy," is received in formalin and consists of four weston soft tissue fragments that measure 0.2-0.9 cm in greatest dimension. The specimen is entirely submitted in cassette (C1). D. The specimen, labeled "Sadaf Doyle, #4," and designated on the requisition PATIENT NAME: SADAF DOYLE PATHOLOGY DATE OF : 58 REPORT #: [id number] PHYSICIAN: CHRISSIE TATE PCP: FREDY SNYDER DO REPORT IS CONFIDENTIAL AND NOT TO BE RELEASED WITHOUT AUTHORIZATION [facility] [address] [place], [place] [address] Signed "EG junction," is received in formalin and consists of one white-weston soft tissue fragment that measures 0.4 cm in greatest dimension. The specimen is entirely submitted in cassette (D1). E. The specimen, labeled "Sadaf Doyle, #5," and designated on the requisition "lower esophagus biopsy," is received in formalin and consists of three white-weston soft tissue fragments that measure 0.3 to 0.4 cm in greatest dimension. The specimen is entirely submitted in cassette (E1). F. The specimen, labeled "Vivek Sadaf, #6," and designated on the requisition "middle esophagus biopsy," is received in formalin and consists of two white-weston soft tissue fragments that measure 0.3 and 0.3 cm in greatest dimension. The specimen is entirely submitted in cassette (F1). FB (under the direct supervision of a pathologist) The Gross Description was prepared using a voice recognition system. The report was reviewed for accuracy; however, sound-alike word errors, addition and/or deletions may occur. If there is any question about this report, please contact Client Services. PERFORMING LABORATORY: The technical component was performed by [facility], [address] [place] [id number] (Director Fixed Income: Dennise Coronado MD; CLIA# [id number]). Professional [place] [facility] [place] [facility] [place] [address] (CLIA# [id number]). Diagnostician: Josef Day MD Pathologist Electronically Signed 03/01/2021 Copies: ~ PATIENT NAME: SADAF DOYLE PATHOLOGY DATE OF : 58 REPORT #: [id number] PHYSICIAN: CHRISSIE TATE PCP: FREDY SNYDER DO REPORT IS CONFIDENTIAL AND NOT TO BE RELEASED WITHOUT AUTHORIZATION
== END 2021-02-24 16:14 | disposition home or self-care (01) ==
LOC: OPS 12:45 → DS 12:45 → OPS 14:00
PROVIDERS: ATTEND Surgery
PROC: 0DB68ZZ Excision of Stomach, Via Natural or Artificial Opening Endoscopic (ICD-10-PCS; principal; 2021-02-24 14:00)
PROC: 0DJD8ZZ Inspection of Lower Intestinal Tract, Via Natural or Artificial Opening Endoscopic (ICD-10-PCS; 2021-02-24 14:00)
DX: Z12.11 Encounter for screening for malignant neoplasm of colon (principal); K21.00 Gastro-esophageal reflux disease with esophagitis, without bleeding; K29.50 Unspecified chronic gastritis without bleeding; K64.8 Other hemorrhoids; K64.4 Residual hemorrhoidal skin tags; C50.411 Malignant neoplasm of upper-outer quadrant of right female breast; K59.09 Other constipation; Z98.84 Bariatric surgery status
CPT/HCPCS: 99153; G0500; J2250; J3010; J7121